=== PATIENT | female | born 1965 | race Caucasian/White ===

== ENCOUNTER 2024-07-01 20:38 | Emergency (ER) | payer OTHER ==
--- NOTE | 2024-07-01 21:12 | RAD REPORT ---
EXAM DESCRIPTION: RAD - Foot Left 3 View - 07/01/2024 9:06 pm CLINICAL HISTORY: left second toe injury COMPARISON: <Comparisons> FINDINGS: No fracture or dislocation seen. Small plantar calcaneal spur.
[2024-07-01] MEDS ORDERED: LIDOCAINE 1% 20 ML MDV ONE (21:16)
[2024-07-01] MEDS ORDERED: methocarbamoL 750 MG TAB ONE (21:17)
[2024-07-01] MEDS ORDERED: KETOROLAC 30 MG/ML INJ ONE (21:17)
--- NOTE | 2024-07-01 22:21 | ER ---
Nurse's Notes [facility] Name: Carlee Campuzano Age: 58 yrs Sex: Female : 1965 Arrival Date: 07/01/2024 Time: 20:38 Bed 14 Private MD: Diagnosis: Contusion of left foot;Acute left fourth toe contusion and pain Presentation: 07/01 21:12 Chief complaint: Patient states: hit toe on corner of kitchen cabinet, is bent and tm6 causing significant pain. Coronavirus screen: Vaccine status: Patient reports being unvaccinated. Ebola Screen: Patient negative for fever greater than or equal to 101.5 degrees Fahrenheit, and additional compatible Ebola Virus Disease symptoms Patient denies exposure to infectious person. Patient denies travel to an Ebola-affected area in the 21 days before illness onset. No symptoms or risks identified at this time. Initial Sepsis Screen: Does the patient meet any 2 criteria? No. Patient's initial sepsis screen is negative. Does the patient have a suspected source of infection? No. Patient's initial sepsis screen is negative. Risk Assessment: Do you want to hurt yourself or someone else? Patient reports no desire to harm self or others. Onset of symptoms was July 01, 2024. 21:12 Method Of Arrival: Ambulatory tm6 21:12 Acuity: JO ANN 4 tm6 Triage Assessment: 21:14 General: Appears uncomfortable, Behavior is cooperative. Pain: Complains of pain in tm6 left fourth toe Pain currently is 10 out of 10 on a pain scale. EENT: No signs and/or symptoms were reported regarding the EENT system. Neuro: Level of Consciousness is awake, alert, obeys commands, Oriented to person, place, time, situation. Cardiovascular: Patient's skin is warm and dry. Respiratory: Airway is patent Respiratory effort is even, unlabored, Respiratory pattern is regular, symmetrical. GI: No signs and/or symptoms were reported involving the gastrointestinal system. Abdomen is flat, non-distended. : No signs and/or symptoms were reported regarding the genitourinary system. Derm: No signs and/or symptoms reported regarding the dermatologic system. Musculoskeletal: Reports pain in left fourth toe. Historical: - Allergies: 21:14 Demerol; tm6 21:14 Morphine; tm6 - PMHx: 21:14 chronic back pain; Asthma; insomnia; tm6 - PSHx: 21:14 Cholecystectomy; gastric sleeve; left shoulder; Ligation of fallopian tube; right tm6 shoulder; Total abdominal hysterectomy; - Immunization history:: Client reports having NOT received the Covid vaccine. - Infectious Disease History:: Denies. - Social history:: Smoking status: Patient denies any tobacco usage or history of. Patient/guardian denies using alcohol. Screenin:05 [facility] ED Fall Risk Assessment (Adult) History of falling in the last 3 months, 12 including since admission. [facility] ED Fall Risk Assessment (Adult) History of falling in the last 3 months, including since admission No falls in past 3 months (0 pts) Confusion or Disorientation No (0 pts) Intoxicated or Sedated No (0 pts) Impaired Gait No (0 pts) Mobility Assist Device Used No (0 pt) Altered Elimination No (0 pt) Score/Fall Risk Level 0 - 2 = Low Risk Oriented to surroundings, Maintained a safe environment. Abuse screen: Denies threats or abuse. Denies injuries from another. Nutritional screening: No deficits noted. Tuberculosis screening: No symptoms or risk factors identified. Assessment: 22:04 General: Appears in no apparent distress. Behavior is calm, cooperative. Pain: 12 Complains of pain in left foot. Neuro: No deficits noted. Cardiovascular: No deficits noted. Respiratory: No deficits noted. GI: No deficits noted. No signs and/or symptoms were reported involving the gastrointestinal system. : No deficits noted. No signs and/or symptoms were reported regarding the genitourinary system. EENT: No deficits noted. No signs and/or symptoms were reported regarding the EENT system. Derm: No deficits noted. No signs and/or symptoms reported regarding the dermatologic system. Musculoskeletal: Reports pain in left foot. Vital Signs: 21:12 BP 124 / 83; Pulse 69; Resp 19; Temp 97.3(TE); Pulse Ox 96% on R/A; Weight 61.23 kg; tm6 Height 5 ft. 4 in. ; Pain 10/10; 22:04 BP 147 / 100; Pulse 62; Resp 14; Temp 98.2; Pulse Ox 100% ; Pain 4/10; jm12 23:01 Pulse 69; Resp 16; Pulse Ox 100% ; Pain 0/10; jm12 21:12 Body Mass Index 23.17 (61.23 kg, 162.56 cm) tm6 21:12 Pain Scale: Adult tm6 22:04 Pain Scale: Adult jm12 23:01 Pain Scale: Adult jm12 ED Course: 20:44 Patient arrived in ED. jj6 20:44 Benjamin Biswas MD is Attending Physician. sp4 21:08 Foot Left 3 View XRAY In Process Unspecified. EDMS 21:14 Triage completed. tm6 21:14 Arm band placed on right wrist. tm6 22:19 Sathish Benson MD is Referral Physician. sp4 Administered Medications: 21:33 Drug: Ketorolac IM 60 mg IM once Route: IM; Site: left vastus lateralis; jm12 22:58 Follow up: Response: Marked relief of symptoms; Pain is decreased jm12 21:33 Drug: Methocarbamol PO 1500 mg PO once Route: PO; jm12 22:58 Follow up: Response: Marked relief of symptoms; Pain is decreased jm12 22:06 Drug: Lidocaine Infiltration (1 %) 20 ml 20 ml Infiltration once; to bedside {Note: jm12 GIVEN BY DR Dunbar} Volume: 20 ml; Route: Infiltration; Outcome: 22:20 Discharge ordered by . sp4 23:02 Discharged to home jm12 23:02 Condition: stable 23:02 Discharge instructions given to patient, Instructed on discharge instructions, follow up and referral plans. medication usage, crutch walking, Demonstrated understanding of instructions, follow-up care, crutch walking, 23:04 Patient left the ED. jm12 Signatures: Dispatcher [employer] EDMS Kamilah Sally j6 Benjamin Biswas MD MD sp4 Du Holloway RN RN 6 Julianna Tam RN RN jm12
--- NOTE | 2024-07-01 22:21 | EDPHYS ---
Physician Documentation [facility] Name: Carlee Campuzano Age: 58 yrs Sex: Female : 1965 Arrival Date: 07/01/2024 Time: 20:38 Bed 14 Private MD: NURA Physician Benjamin Biswsa HPI: 07/01 20:44 This 58 yrs old Female presents to ER via Unassigned with complaints of Toe sp4 Injury. Historical: - Allergies: 21:14 Demerol; tm6 21:14 Morphine; tm6 - PMHx: 21:14 chronic back pain; Asthma; insomnia; tm6 - PSHx: 21:14 Cholecystectomy; gastric sleeve; left shoulder; Ligation of fallopian tube; right tm6 shoulder; Total abdominal hysterectomy; - Immunization history:: Client reports having NOT received the Covid vaccine. - Infectious Disease History:: Denies. - Social history:: Smoking status: Patient denies any tobacco usage or history of. Patient/guardian denies using alcohol. Vital Signs: 21:12 BP 124 / 83; Pulse 69; Resp 19; Temp 97.3(TE); Pulse Ox 96% on R/A; Weight 61.23 kg; tm6 Height 5 ft. 4 in. ; Pain 10/10; 22:04 BP 147 / 100; Pulse 62; Resp 14; Temp 98.2; Pulse Ox 100% ; Pain 4/10; jm12 23:01 Pulse 69; Resp 16; Pulse Ox 100% ; Pain 0/10; jm12 21:12 Body Mass Index 23.17 (61.23 kg, 162.56 cm) 6 21:12 Pain Scale: Adult tm6 22:04 Pain Scale: Adult jm12 23:01 Pain Scale: Adult 12 MDM: 20:56 Patient medically screened. sp4 07/01 20:56 Order name: Foot Left 3 View XRAY; Complete Time: 22:28 sp4 07/01 22:15 Order name: Crutches sp4 07/01 22:15 Order name: Orthopedic shoe: Left foot ortho boot - applied by MD pool4 Administered Medications: 21:33 Drug: Ketorolac IM 60 mg IM once Route: IM; Site: left vastus lateralis; [facility] 22:58 Follow up: Response: Marked relief of symptoms; Pain is decreased [facility] 21:33 Drug: Methocarbamol PO 1500 mg PO once Route: PO; 12 22:58 Follow up: Response: Marked relief of symptoms; Pain is decreased [facility] 22:06 Drug: Lidocaine Infiltration (1 %) 20 ml 20 ml Infiltration once; to bedside {Note: jm12 GIVEN BY DR Dunbar} Volume: 20 ml; Route: Infiltration; Disposition Summary: 07/01/24 22:20 Discharge Ordered Problem: new sp4 Symptoms: have improved sp4 Condition: Stable sp4 Diagnosis - Contusion of left foot sp4 - Acute left fourth toe contusion and pain sp4 Followup: sp4 - With: Sathish Benson MD - When: 7 - 10 days - Reason: Recheck today's complaints Discharge Instructions: - Discharge Summary Sheet sp4 - Toe Fracture sp4 Forms: - Patient Portal Instructions sp4 Prescriptions: - Ibuprofen 800 mg Oral Tablet - take 1 tablet ORAL route every 8 hours As needed take with food; 30 tablet; sp4 Refills: 0, Product Selection Permitted - methocarbamol 750 mg Oral tablet - take 2 tablets ORAL route every 8 hours for 3 days PRN pain; 60 tablet; sp4 Refills: 0, Product Selection Permitted Signatures: Dispatcher [employer] Benjamin Henry MD MD sp4 Du Holloway RN RN tm6 Julianna Tam RN RN jm12
[2024-07-01 23:10] VITALS: BP 147/100; TEMP 98.2; O2SAT 100
== END 2024-07-01 23:04 | disposition home or self-care (01) ==
LOC: ER 20:38
DX: S90.32XA Contusion of left foot, initial encounter (principal); S90.122A Contusion of left lesser toe(s) without damage to nail, initial encounter
CPT/HCPCS: 73630; 96372; 99284; J2001

== ENCOUNTER 2024-08-13 10:35 | Emergency (ER) | payer OTHER ==
[2024-08-13] MEDS ORDERED: IPRATROPIUM BROM 0.5MG/2.5ML ONE (10:57)
[2024-08-13] MEDS ORDERED: ALBUTEROL 2.5 MG/3 ML NEB SOL ONE (10:57)
[2024-08-13] MEDS ORDERED: dexAMETHasone 10 MG/ML VIAL ONE (10:57)
--- NOTE | 2024-08-13 11:23 | RAD REPORT ---
EXAM: Chest Pa And Lat (2 Views) HISTORY: COUGH COMPARISON: 06/10/24 FINDINGS: LUNGS/PLEURA: The lungs are clear. No pleural effusions or pneumothorax. No pulmonary edema. MEDIASTINUM: The mediastinal silhouette is within normal limits. CARDIAC: The cardiac silhouette is within normal limits. UPPER ABDOMEN: No significant abnormality. BONES: No acute fracture. LINES/TUBES/OTHER: N/A IMPRESSION: No evidence of acute cardiopulmonary disease
[2024-08-13 11:28] LABS: SARS-CoV-2 Antigen CONTROL BLUE LINE VIS/BG OK; SARS-CoV-2 Antigen Rapid Res Negative (Negative)
--- NOTE | 2024-08-13 11:58 | ER ---
Nurse's Notes [facility] Name: Carlee Campuzano Age: 58 yrs Sex: Female : 1965 Arrival Date: 08/13/2024 Time: 10:35 Bed 17 Private MD: Diagnosis: Acute upper respiratory infection, unspecified;Unspecified asthma, uncomplicated Presentation: 08/13 10:45 Chief complaint: Patient states: COUGH, FLU SYMPTOMS X 6 WEEKS. WENT TO [facility] 4 WEEKS db AGO. SYMPTOMS WORSE X 3 DAYS WITH INCREASED COUGH AND FEVER TODAY 101. TOOK TYLENOL TODAY FOR FEVER. TOOK ALL OF PRESCRIBED ANTIBIOTICS FROM [facility] AND ALBUTEROL TREATMENT. Coronavirus screen: Client denies travel out of the [place] in the last 14 days. At this time, the client does not indicate any symptoms associated with coronavirus-19. Ebola Screen: Patient negative for fever greater than or equal to 101.5 degrees Fahrenheit, and additional compatible Ebola Virus Disease symptoms Patient denies exposure to infectious person. Patient denies travel to an Ebola-affected area in the 21 days before illness onset. No symptoms or risks identified at this time. Initial Sepsis Screen: Does the patient meet any 2 criteria? No. Patient's initial sepsis screen is negative. Does the patient have a suspected source of infection? No. Patient's initial sepsis screen is negative. Risk Assessment: Do you want to hurt yourself or someone else? Patient reports no desire to harm self or others. Onset of symptoms was August 13, 2024. 10:45 Method Of Arrival: Ambulatory db 10:45 Acuity: JO ANN 4 db Triage Assessment: 11:29 General: Appears in no apparent distress. comfortable, Behavior is calm, cooperative, db appropriate for age. Pain: Denies pain. Neuro: Level of Consciousness is awake, alert, obeys commands, Oriented to person, place, time, situation. Respiratory: Reports cough that is persistent Airway is patent Respiratory effort is even, unlabored, Respiratory pattern is regular, symmetrical. Historical: - Allergies: 11:29 Demerol; db 11:29 Morphine; db - PMHx: 11:29 Asthma; chronic back pain; insomnia; db - PSHx: 11:29 Cholecystectomy; gastric sleeve; left shoulder; Ligation of fallopian tube; right db shoulder; Total abdominal hysterectomy; - Immunization history:: Adult Immunizations unknown. - Infectious Disease History:: Denies. - Social history:: Smoking status: Patient/guardian denies using tobacco. Screenin:10 [facility] ED Fall Risk Assessment (Adult) History of falling in the last 3 months, db including since admission No falls in past 3 months (0 pts) Confusion or Disorientation No (0 pts) Intoxicated or Sedated No (0 pts) Impaired Gait No (0 pts) Mobility Assist Device Used No (0 pt) Altered Elimination No (0 pt) Score/Fall Risk Level 0 - 2 = Low Risk Oriented to surroundings, Maintained a safe environment. Abuse screen: Denies threats or abuse. Denies injuries from another. Nutritional screening: No deficits noted. Tuberculosis screening: No symptoms or risk factors identified. Assessment: 12:00 Reassessment: Patient appears in no apparent distress at this time. Patient and/or db family updated on plan of care and expected duration. Pain level reassessed. Patient is alert, oriented x 3, equal unlabored respirations, skin warm/dry/pink. Patient states feeling better. Patient states symptoms have improved. General: Appears in no apparent distress. comfortable, Behavior is calm, cooperative. Neuro: Level of Consciousness is awake, alert, obeys commands, Oriented to person, place, time, situation. Vital Signs: 10:45 BP 136 / 77; Pulse 85; Resp 18; Temp 98.2; Pulse Ox 99% ; Weight 61.23 kg; Height 5 ft. db 4 in. ; 11:30 BP 127 / 83; Pulse 67; Resp 18; Pulse Ox 99% on R/A; db 12:10 BP 120 / 78; Pulse 68; Resp 18; Pulse Ox 96% on R/A; db 10:45 Body Mass Index 23.17 (61.23 kg, 162.56 cm) db ED Course: 10:38 Patient arrived in ED. im 10:39 Jaycob Hughes FNP-C is PHCP. dr5 10:39 Justin Spaulding MD is Attending Physician. dr5 10:53 Kaitlyn Pham, ALEXSANDER is Primary Nurse. db 11:18 Chest Pa And Lat (2 Views) XRAY In Process Unspecified. EDMS 11:29 Triage completed. db 11:29 Arm band placed on Patient placed in an exam room. db 12:10 Patient has correct armband on for positive identification. Bed in low position. Call db light in reach. Side rails up X 1. Provided Education on: DISCHARGE, MEDICATIONS AND FOLLOWUP. Pulse ox on. NIBP on. 12:10 No provider procedures requiring assistance completed. Patient did not have IV access db during this emergency room visit. Administered Medications: 11:10 Drug: Dexamethasone IM 10 mg IM once Route: IM; Site: right ventrogluteal; db 12:11 Follow up: Response: No adverse reaction db 11:11 Drug: DuoNeb Nebulize (3:1) (2.5 mg - 0.5 mg) 3 ml Nebulizer once Route: Nebulizer; db 12:11 Follow up: Response: No adverse reaction db Medication: 12:10 VIS not applicable for this client. db Outcome: 11:58 Discharge ordered by . dr5 12:10 Discharged to home ambulatory, with family, db 12:10 Condition: stable 12:10 Discharge instructions given to patient, family, Instructed on discharge instructions, follow up and referral plans. Prescriptions given X 4, 12:12 Patient left the ED. db Signatures: Dispatcher [employer] Kaitlyn Cochran, RN RN db Teresa Roger Dustin, [employer] CONTRACTOR-C P[employer]OD CONTRACTOR-Cdr5
--- NOTE | 2024-08-13 11:58 | EDPHYS ---
Physician Documentation [facility] Name: Carlee Campuzano Age: 58 yrs Sex: Female : 1965 Arrival Date: 08/13/2024 Time: 10:35 Bed 17 Private MD: ED Physician Justin Spaulding HPI: 08/13 10:57 This 58 yrs old Female presents to ER via Ambulatory with complaints of Flu dr5 Symptoms. 10:57 Pt presents to ER with 3 days of cough, congestion, wheezing, and subjective fevers at dr5 home. Pt hasn't tried any at home remedies.. Historical: - Allergies: 11:29 Demerol; db 11:29 Morphine; db - PMHx: 11:29 Asthma; chronic back pain; insomnia; db - PSHx: 11:29 Cholecystectomy; gastric sleeve; left shoulder; Ligation of fallopian tube; right db shoulder; Total abdominal hysterectomy; - Immunization history:: Adult Immunizations unknown. - Infectious Disease History:: Denies. - Social history:: Smoking status: Patient/guardian denies using tobacco. ROS: 10:57 Constitutional: as per hpi dr5 Exam: 10:57 Constitutional: This is a well developed, well nourished patient who is awake, alert, dr5 and in no acute distress. Head/Face: Normocephalic, atraumatic. Eyes: Pupils equal round and reactive to light, extra-ocular motions intact. Lids and lashes normal. Conjunctiva and sclera are non-icteric and not injected. Cornea within normal limits. Periorbital areas with no swelling, redness, or edema. ENT: Nares patent. No nasal discharge, no septal abnormalities noted. Tympanic membranes are normal and external auditory canals are clear. Oropharynx with no redness, swelling, or masses, exudates, or evidence of obstruction, uvula midline. Mucous membranes moist. Neck: Trachea midline, no thyromegaly or masses palpated, and no cervical lymphadenopathy. Supple, full range of motion without nuchal rigidity, or vertebral point tenderness. No Meningismus. Respiratory: Lungs have equal breath sounds bilaterally, clear to auscultation. No rales, rhonchinoted. Mild expiratory wheezing noted in bilateral lower lobes. No increased work of breathing, no retractions or nasal flaring. Abdomen/GI: Soft, non-tender, non-distended Vital Signs: 10:45 BP 136 / 77; Pulse 85; Resp 18; Temp 98.2; Pulse Ox 99% ; Weight 61.23 kg; Height 5 ft. db 4 in. ; 11:30 BP 127 / 83; Pulse 67; Resp 18; Pulse Ox 99% on R/A; db 12:10 BP 120 / 78; Pulse 68; Resp 18; Pulse Ox 96% on R/A; db 10:45 Body Mass Index 23.17 (61.23 kg, 162.56 cm) db MDM: 10:40 Patient medically screened. dr5 12:00 Differential diagnosis: viral Infection, bacterial infection, URI, bronchitis, dr5 pneumonia Asthma. Data reviewed: vital signs, nurses notes. Consideration of Admission/Observation Escalation of care including admission/observation considered. If hypoxic in setting of PNA and / or COVID-19. I considered the following discharge prescriptions or medication management in the emergency department Antibiotics: At this time antibiotics are not recommended, Antivirals: At this time, antivirals are not recommended, Medications were administered in the Emergency Department. See MAR. Care significantly affected by the following chronic conditions: Asthma. Care significantly affected by the following Social Determinants of Health: Poor access to healthcare and/or lack of insurance, Poor access to transportation, Misuse of alcohol and/or drugs. Counseling: I had a detailed discussion with the patient and/or guardian regarding the historical points, exam findings, and any diagnostic results supporting the discharge/admit diagnosis, the presence of at least one elevated blood pressure reading (>120/80) during this emergency department visit, lab results, radiology results, the need for outpatient follow up, for definitive care, a family practitioner, to return to the emergency department if symptoms worsen or persist or if there are any questions or concerns that arise at home. Medication response: albuterol nebulizer treatment(s) relieved the patient's symptoms. The patient is no longer wheezing. ED course: CXR was normal. COVID/Flu/Strep negative. Will treat symptomatically with PCP follow up as needed.. 08/13 10:52 Order name: Strep dr5 08/13 10:52 Order name: SARS RAPID; Complete Time: 11:28 dr5 08/13 10:52 Order name: Flu; Complete Time: 11:43 dr5 08/13 11:23 Order name: Throat Culture EDRI 08/13 10:52 Order name: Chest Pa And Lat (2 Views) XRAY; Complete Time: 11:28 dr5 Administered Medications: 11:10 Drug: Dexamethasone IM 10 mg IM once Route: IM; Site: right ventrogluteal; db 12:11 Follow up: Response: No adverse reaction db 11:11 Drug: DuoNeb Nebulize (3:1) (2.5 mg - 0.5 mg) 3 ml Nebulizer once Route: Nebulizer; db 12:11 Follow up: Response: No adverse reaction db Disposition: 14:05 Co-signature as Attending Physician, Justin Spaulding MD I reviewed the patient's care rt provided by the Advanced Practice Provider and agree with the diagnosis and treatment plan. Disposition Summary: 08/13/24 11:58 Discharge Ordered Notes: Location: Home dr5 Condition: Stable dr5 Diagnosis - Acute upper respiratory infection, unspecified dr5 - Unspecified asthma, uncomplicated dr5 Followup: dr5 - With: Emergency Department - When: As needed - Reason: Worsening of condition Followup: dr5 - With: Private Physician - When: 2 - 3 days - Reason: Recheck today's complaints, Continuance of care, Re-evaluation by your physician Discharge Instructions: - Discharge Summary Sheet dr5 - Asthma, Adult dr5 - Viral Respiratory Infection, [id number] dr5 Forms: - Work release form dr5 - Medication Reconciliation Form dr5 - Patient Portal Instructions dr5 - Leadership Thank You Letter dr5 Prescriptions: - Advair Diskus 500-50 mcg/Dose Inhalation Disk with Device - inhale 1 puff INHALATION route every 12 hours; 1 packet; Refills: 0, Product dr5 Selection Permitted - Prednisone 20 mg Oral Tablet - take 2 tablets ORAL route once daily for 5 days; 10 tablet; Refills: 0, Product dr5 Selection Permitted - benzonatate 100 mg Oral capsule - take 1 capsule ORAL route 3 times per day for 7 days; 30 capsule; Refills: 0, dr5 Product Selection Permitted - Guaifenesin AC 10-100 mg/5 mL Oral Liquid - take 10 milliliters ORAL route every 4 hours As needed; 240 milliliter; dr5 Refills: 0, Product Selection Permitted Signatures: Dispatcher [employer] Kaitlyn Miller RN RN Justin Hendricks MD MD rt Jaycob Hughes, BENCH SCIENTIST-C BENCH SCIENTIST-Cdr5 Corrections: (The following items were deleted from the chart) 10:52 10:52 Chest Pa And Lat (2 Views)+[email or web address] ordered. EDMS EDMS
[2024-08-13 12:17] VITALS: TEMP 98.2
[2024-08-13 12:20] VITALS: BP 120/78; O2SAT 96
== END 2024-08-13 12:12 | disposition home or self-care (01) ==
LOC: ER 10:35
DX: J06.9 Acute upper respiratory infection, unspecified (principal); J45.909 Unspecified asthma, uncomplicated; Z11.52 Encounter for screening for COVID-19
CPT/HCPCS: 87070; 36415; 87081; 87804 ×2; 71046; 96372; 99284; 87811; J7613; J7644; J1100

== ENCOUNTER 2024-08-20 17:23 | Emergency (ER) | payer OTHER ==
--- NOTE | 2024-08-20 17:54 | EDPHYS ---
Physician Documentation [facility] Name: Carlee Campuzano Age: 58 yrs Sex: Female : 1965 Arrival Date: 08/20/2024 Time: 17:23 Bed 14 Private MD: ED Physician Luke Moon HPI: 08/20 17:55 This 58 yrs old Female presents to ER via Ambulatory with complaints of Sore Throat. sb4 17:55 patient reports feeling sick for about 6 weeks now with varying symptoms- cough, sore sb4 throat, wheezing, ear pain, sinus congestion. was seen here about 1 week ago, diagnosed with URI and given prescriptions for steroids, antitussives, inhaler, and expectorants. states her symptoms have not gotten better and now her throat is causing her more pain. states she had a fever this morning and saw pus pockets on her tonsils. Historical: - Allergies: 17:50 Demerol; aa5 17:50 Morphine; aa5 - PMHx: 17:50 Asthma; chronic back pain; insomnia; aa5 - PSHx: 17:50 Cholecystectomy; gastric sleeve; left shoulder; Ligation of fallopian tube; right aa5 shoulder; Total abdominal hysterectomy; - Immunization history:: Adult Immunizations unknown. - Infectious Disease History:: Denies. - Social history:: Smoking status: Patient denies any tobacco usage or history of. ROS: 17:55 Cardiovascular: Negative for chest pain, palpitations, and edema, sb4 17:55 Constitutional: Positive for fatigue, fever, malaise, 17:55 ENT: Positive for ear pain, sore throat, 17:55 Respiratory: Positive for cough, 17:55 All other systems are negative, Exam: 17:55 Head/Face: Normocephalic, atraumatic. Eyes: Extra-ocular motions intact. Periorbital sb4 areas with no swelling, redness, or edema. Cardiovascular: Regular rate and rhythm with a normal S1 and S2. Respiratory: Lungs have equal breath sounds bilaterally, clear to auscultation and percussion. No rales, rhonchi or wheezes noted. No increased work of breathing, no retractions or nasal flaring. Skin: Warm, dry with normal turgor. Normal color with no rashes, no lesions, and no evidence of cellulitis. 17:55 Constitutional: The patient appears alert, awake, obviously ill, 17:55 ENT: Posterior pharynx: Tonsils: are normal in appearance, swelling, that is mild, erythema, that is moderate, Vital Signs: 17:50 BP 146 / 88; Pulse 66; Resp 18 S; Temp 98.2(TE); Pulse Ox 97% on R/A; Weight 61.23 kg aa5 (R); Height 5 ft. 4 in. (R); 17:50 Body Mass Index 23.17 (61.23 kg, 162.56 cm) aa5 MDM: 17:45 Patient medically screened. sb4 17:57 Data reviewed: vital signs, nurses notes, and as a result, I will discharge patient. sb4 Counseling: I had a detailed discussion with the patient and/or guardian regarding the historical points, exam findings, and any diagnostic results supporting the discharge/admit diagnosis, to return to the emergency department if symptoms worsen or persist or if there are any questions or concerns that arise at home. Administered Medications: No medications were administered Disposition Summary: 08/20/24 17:53 Discharge Ordered Notes: Location: Home sb4 Problem: an ongoing problem sb4 Symptoms: are unchanged sb4 Condition: Stable sb4 Diagnosis - Acute pharyngitis, unspecified sb4 Followup: sb4 - With: Emergency Department - When: As needed - Reason: Trouble breathing, Worsening of condition Discharge Instructions: - Discharge Summary Sheet sb4 - Pharyngitis, [id number] sb4 Forms: - Antibiotic Education sb4 - Patient Portal Instructions sb4 - Leadership Thank You Letter sb4 Prescriptions: - Amoxicillin 875 mg Oral Tablet - take 1 tablet ORAL route every 12 hours for 10 days; 20 tablet; Refills: 0, sb4 Product Selection Permitted Addendum: 08/22/2024 09:22 I was immediately available for consultation during this patient's visit. I did not e c2 personally see the patient or discuss the patient with the TED. . Signatures: Kylie Valentin, RN RN aa5 Leny Tian PA-C PAJeanine sb4 Luke Moon MD MD ec2
--- NOTE | 2024-08-20 17:54 | ER ---
Nurse's Notes [facility] Name: Carlee Campuzano Age: 58 yrs Sex: Female : 1965 Arrival Date: 08/20/2024 Time: 17:23 Bed 14 Private MD: Diagnosis: Acute pharyngitis, unspecified Presentation: 08/20 17:50 Chief complaint: Patient states: "I was here recently but I am still sick". pt c/o aa5 cough, sore throat and concetta ear pain. Coronavirus screen: sore throat. Ebola Screen: Patient denies travel to an Ebola-affected area in the 21 days before illness onset. Initial Sepsis Screen: Does the patient meet any 2 criteria? No. Patient's initial sepsis screen is negative. Does the patient have a suspected source of infection? No. Patient's initial sepsis screen is negative. Risk Assessment: Do you want to hurt yourself or someone else? Patient reports no desire to harm self or others. Onset of symptoms was 2023. 17:50 Acuity: JO ANN 4 aa5 17:50 Method Of Arrival: Ambulatory aa5 Historical: - Allergies: 17:50 Demerol; aa5 17:50 Morphine; aa5 - PMHx: 17:50 Asthma; chronic back pain; insomnia; aa5 - PSHx: 17:50 Cholecystectomy; gastric sleeve; left shoulder; Ligation of fallopian tube; right aa5 shoulder; Total abdominal hysterectomy; - Immunization history:: Adult Immunizations unknown. - Infectious Disease History:: Denies. - Social history:: Smoking status: Patient denies any tobacco usage or history of. Screenin:02 [facility] ED Fall Risk Assessment (Adult) History of falling in the last 3 months, kc6 including since admission No falls in past 3 months (0 pts) Confusion or Disorientation No (0 pts) Intoxicated or Sedated No (0 pts) Impaired Gait No (0 pts) Mobility Assist Device Used No (0 pt) Altered Elimination No (0 pt) Score/Fall Risk Level 0 - 2 = Low Risk Oriented to surroundings. Abuse screen: Denies threats or abuse. Denies injuries from another. Nutritional screening: No deficits noted. Tuberculosis screening: No symptoms or risk factors identified. Assessment: 18:01 General: Appears in no apparent distress. comfortable, well groomed, well developed, kc6 Behavior is calm, cooperative, appropriate for age. Neuro: Level of Consciousness is awake, alert, obeys commands, Oriented to person, place, time, situation, Appropriate for age. Cardiovascular: Capillary refill < 3 seconds. Respiratory: Airway is patent Trachea midline Respiratory effort is even, unlabored, Respiratory pattern is regular, symmetrical, Breath sounds are clear bilaterally. GI: No signs and/or symptoms were reported involving the gastrointestinal system. : No signs and/or symptoms were reported regarding the genitourinary system. EENT: Throat is reddened bilaterally with gag reflex present, Reports pain when swallowing. Derm: No signs and/or symptoms reported regarding the dermatologic system. Skin is intact, is healthy with good turgor, Skin is pink, warm \\T\\ dry. Musculoskeletal: No signs and/or symptoms reported regarding the musculoskeletal system. Circulation, motion, and sensation intact. Capillary refill < 3 seconds, Range of motion: intact in all extremities. Vital Signs: 17:50 BP 146 / 88; Pulse 66; Resp 18 S; Temp 98.2(TE); Pulse Ox 97% on R/A; Weight 61.23 kg aa5 (R); Height 5 ft. 4 in. (R); 17:50 Body Mass Index 23.17 (61.23 kg, 162.56 cm) aa5 ED Course: 17:37 Patient arrived in ED. ra3 17:38 Len[facility] Tian [facility] sb4 17:38 Luke Moon MD is Attending Physician. sb4 17:50 Arm band placed on. aa5 17:51 Triage completed. aa5 18:01 Jaci Toscano, ALEXSANDER is Primary Nurse. kc6 18:02 Patient has correct armband on for positive identification. Bed in low position. Call kc6 light in reach. Side rails up X 1. Pulse ox on. NIBP on. Door closed. Noise minimized. Lights dimmed. Pillow given. 18:02 Patient maintains SpO2 saturation greater than 95% on room air. kc6 18:02 No provider procedures requiring assistance completed. Patient did not have IV access kc6 during this emergency room visit. Administered Medications: No medications were administered Medication: 18:02 VIS not applicable for this client. kc6 Outcome: 17:53 Discharge ordered by . sb4 18:02 Discharged to home ambulatory, kc6 18:02 Condition: good 18:02 Discharge instructions given to patient, Instructed on discharge instructions, follow up and referral plans. medication usage, Demonstrated understanding of instructions, follow-up care, medications, Prescriptions given X 1, 18:02 Patient left the ED. kc6 Signatures: Kylie Valentin, RN RN aa5 Jaci Toscano RN RN kc6 Leny Tian PAMoeC PA-Lora sb4 Alisha Haq ra3 Corrections: (The following items were deleted from the chart) 17:53 17:50 BP 146 / 88; Pulse 66bpm; Resp 18bpm; Spontaneous; Pulse Ox 97% RA; Temp 98.2F aa5 Temporal; aa5
[2024-08-20 21:49] VITALS: BP 146/88; TEMP 98.2; O2SAT 97
== END 2024-08-20 18:02 | disposition home or self-care (01) ==
LOC: ER 17:23
DX: J02.9 Acute pharyngitis, unspecified (principal)

== ENCOUNTER 2024-09-03 13:35 | Emergency (ER) | payer OTHER ==
[2024-09-03] MEDS ORDERED: AZITHROMYCIN 250 MG TAB ONE (14:03)
[2024-09-03] MEDS ORDERED: BENZONATATE 100 MG CAP PO ONE (14:21)
[2024-09-03] MEDS ORDERED: dexAMETHasone 10 MG/ML VIAL ONE (15:04)
[2024-09-03] MEDS ORDERED: NA CHLORIDE 0.9% 1,000 ML ONE (15:04)
[2024-09-03] MEDS ORDERED: FAMOTIDINE 20 MG/2 ML VIAL IV ONE (15:04)
[2024-09-03 15:36] LABS: SARS-CoV-2 Antigen CONTROL BLUE LINE VIS/BG OK; SARS-CoV-2 Antigen Rapid Res Negative (Negative)
[2024-09-03 15:40] LABS: Albumin 3.7 g/dL (3.4-5.0); Albumin/Globulin Ratio 1.2 (1.1-1.8); Anion Gap 7.7 mEq/L (5.0-15.0); Bilirubin Total 0.4 mg/dL (0.2-1.0); Potassium 3.7 mEq/L (3.5-5.1); Protein, Total 6.7 g/dL (6.4-8.2)
[2024-09-03 15:42] LABS: Absolute Lymphocytes (CBC) 1.4 K/uL (0.7-4.9); Absolute Monocytes 0.4 K/uL (0.1-1.3); Absolute Neutrophil 2.2 K/uL (1.8-8.0); Basophils % 1.1 % (0-1.3); Hemoglobin 14.1 g/dL (12.0-15.0); Lymphocytes % 35.2 % (15.3-44.8); MCH 30.1 pg (27.0-35.0); MCHC 33.6 g/dL (32.0-36.0); MCV 89.7 fL (80-100); MPV 8.8 fL (7.6-11.3); Monocytes % 9.5 % (3.3-12.3); Neutrophils % 54.2 % (41.7-73.7); Nucleated Red Blood Cells % 0.1 % (0-0); Platelets 177 thou/uL (152-406); RBC Red Blood Cell Count 4.68 M/uL (3.86-4.86); Red Cell Distribution Width 14.2 % (12.1-15.2)
--- NOTE | 2024-09-03 16:28 | RAD REPORT ---
EXAM: CT Soft Tissue Neck W/Contr INDICATION: [facility] MAIN NA SORE THROAT Bed Name: 9 TECHNIQUE: Helical CT examination of the neck with IV contrast. Sagittal and coronal reformations wer e generated. This exam was performed according to our departmental dose-optimization program, which includes automated exposure control, adjustment of the mA and/or kV according to patient size and/or use of iterative reconstruction technique. COMPARISON: None. FINDINGS: Mucosal spaces: Nasopharynx, oropharynx, oral cavity, larynx and hypopharynx are normal. No suspiciou s masses. Epiglottis is normal in configuration. True vocal cords cords are normally situated. Piriform sinuses are well-aerated. Lymph Nodes: No pathologic appearing cervical lymph nodes. Salivary Glands: Unremarkable. Thyroid Gland: Normal Included Intracranial Structures: Normal Included Orbits: Normal Paranasal Sinuses: Predominantly clear Tympanomastoid Cavities: Normal Vascular Structures: Normal Osseous Structures: No acute osseous abnormality. Included Lung Apices: Normal IMPRESSION: Normal contrast-enhanced CT of the neck.
--- NOTE | 2024-09-03 16:30 | EDPHYS ---
Physician Documentation [facility] Name: Carlee Campuzano Age: 58 yrs Sex: Female : 1965 Arrival Date: 09/03/2024 Time: 13:35 Bed 9 Private MD: ED Physician Kang Oglesby HPI: 09/03 14:48 This 58 yrs old Female presents to ER via Ambulatory with complaints of Sore kerrie Throat. 14:48 The patient presents with sore throat. The patient describes throat pain as constant, kerrie raw, scratchy. Onset: The symptoms/episode began/occurred 14 day(s) ago. Severity of symptoms: At their worst the symptoms were moderate, in the emergency department the symptoms are unchanged. Modifying factors: The symptoms are alleviated by nothing, the symptoms are aggravated by nothing. Associated signs and symptoms: Pertinent positives: Sore throat. The patient has experienced similar episodes in the past, multiple times. Historical: - Allergies: 13:54 Demerol; aa5 13:54 Morphine; aa5 - PMHx: 13:54 Asthma; chronic back pain; insomnia; aa5 - PSHx: 13:54 Cholecystectomy; gastric sleeve; left shoulder; Ligation of fallopian tube; right aa5 shoulder; Total abdominal hysterectomy; - Immunization history:: Adult Immunizations unknown. - Infectious Disease History:: Denies. - Social history:: Smoking status: Patient denies any tobacco usage or history of. ROS: 14:49 Constitutional: Negative for fever, chills, and weight loss, Eyes: Negative for injury, kerrie pain, redness, and discharge, Neck: Negative for injury, pain, and swelling, Cardiovascular: Negative for chest pain, palpitations, and edema, Respiratory: Negative for shortness of breath, cough, wheezing, and pleuritic chest pain, Abdomen/GI: Negative for abdominal pain, nausea, vomiting, diarrhea, and constipation, Back: Negative for injury and pain, : Negative for injury, bleeding, discharge, and swelling, MS/Extremity: Negative for injury and deformity, Skin: Negative for injury, rash, and discoloration, Neuro: Negative for headache, weakness, numbness, tingling, and seizure, Psych: Negative for depression, anxiety, suicide ideation, homicidal ideation, and hallucinations, Allergy/Immunology: Negative for hives, rash, and allergies, Endocrine: Negative for neck swelling, polydipsia, polyuria, polyphagia, and marked weight changes, Hematologic/Lymphatic: Negative for swollen nodes, abnormal bleeding, and unusual bruising, Exam: 14:49 Constitutional: This is a well developed, well nourished patient who is awake, alert, kerrie and in no acute distress. Head/Face: Normocephalic, atraumatic. Eyes: Pupils equal round and reactive to light, extra-ocular motions intact. Lids and lashes normal. Conjunctiva and sclera are non-icteric and not injected. Cornea within normal limits. Periorbital areas with no swelling, redness, or edema. ENT: Nares patent. No nasal discharge, no septal abnormalities noted. Tympanic membranes are normal and external auditory canals are clear. Oropharynx with no redness, swelling, or masses, exudates, or evidence of obstruction, uvula midline. Mucous membranes moist. Neck: Trachea midline, no thyromegaly or masses palpated, and no cervical lymphadenopathy. Supple, full range of motion without nuchal rigidity, or vertebral point tenderness. No Meningismus. Chest/axilla: Normal chest wall appearance and motion. Nontender with no deformity. No lesions are appreciated. Cardiovascular: Regular rate and rhythm with a normal S1 and S2. No gallops, murmurs, or rubs. Normal PMI, no JVD. No pulse deficits. Respiratory: Lungs have equal breath sounds bilaterally, clear to auscultation and percussion. No rales, rhonchi or wheezes noted. No increased work of breathing, no retractions or nasal flaring. Abdomen/GI: Soft, non-tender, with normal bowel sounds. No distension or tympany. No guarding or rebound. No evidence of tenderness throughout. Back: No spinal tenderness. No costovertebral tenderness. Full range of motion. Female : Normal external genitalia. Skin: Warm, dry with normal turgor. Normal color with no rashes, no lesions, and no evidence of cellulitis. MS/ Extremity: Pulses equal, no cyanosis. Neurovascular intact. Full, normal range of motion. Neuro: Awake and alert, GCS 15, oriented to person, place, time, and situation. Cranial nerves II-XII grossly intact. Motor strength 5/5 in all extremities. Sensory grossly intact. Cerebellar exam normal. Normal gait. Psych: Awake, alert, with orientation to person, place and time. Behavior, mood, and affect are within normal limits. 14:49 ENT: Posterior pharynx: no acute changes, Airway: normal, no evidence of obstruction, Tonsils: are normal in appearance, Uvula: normal, midline, non-edematous, no erythema, swelling, is not appreciated, that is mild, erythema, that is mild, exudate, is not appreciated, peritonsillar mass, is not appreciated, Voice: is hoarse, Vital Signs: 13:54 BP 131 / 99; Pulse 61; Resp 18 S; Temp 98.1(O); Pulse Ox 100% on R/A; Weight 61.23 kg aa5 (R); Height 5 ft. 4 in. (R); 13:54 Body Mass Index 23.17 (61.23 kg, 162.56 cm) aa5 MDM: 13:56 Medical Screening Exam initiated kerrie 14:52 Differential diagnosis: Allergic rhinitis, bronchitis, epiglottitis, gastroesophageal kerrie reflux disease, group A strep tonsillitis, influenza, laryngitis, mononucleosis, peritonsillar abscess pharyngitis, radiation retropharyngeal abcess tonsillitis, tracheobronchitis, upper respiratory infection, uvulitis, viral syndrome. Data reviewed: vital signs, nurses notes, lab test result(s), radiologic studies, CT scan. Consideration of Admission/Observation Escalation of care including admission/observation considered. I considered the following discharge prescriptions or medication management in the emergency department Medications were administered in the Emergency Department. See MAR. Independent interpretation of the following test(s) in the Emergency Department CT Scan: My interpretation is CT SOFT TISSUE. Test considered but Not performed: Ultrasound NO CAROTID USG. Care significantly affected by the following chronic conditions: ASTHMA. 09/03 13:57 Order name: Strep [facility] 09/03 13:57 Order name: Flu; Complete Time: 15:43 [facility] 09/03 13:57 Order name: SARS RAPID; Complete Time: 15:43 [facility] 09/03 14:47 Order name: CBC with Diff; Complete Time: 15:56 [facility] 09/03 14:47 Order name: Comprehensive Metabolic Panel; Complete Time: 15:43 [facility] 09/03 15:40 Order name: Throat Culture [facility] 09/03 14:47 Order name: CT Soft Tissue Neck W/contr; Complete Time: 16:29 kerrie Administered Medications: 14:12 Drug: AZITHromycin PO 500 mg PO once Route: PO; ss 15:15 Follow up: Response: No adverse reaction aa5 14:23 Drug: Tessalon Perle PO 100 mg PO once Route: PO; ss 15:15 Follow up: Response: No adverse reaction aa5 15:35 Follow up: Response: No adverse reaction la1 15:15 Drug: NS 0.9% IV 1000 ml IV at 1000 ml once; to be given as a bolus over 60 minutes aa5 Route: IV; Rate: 1000 ml; Site: right forearm; 16:47 Follow up: IV Status: Completed infusion; IV Intake: 1000ml ss 15:15 Drug: Decadron - Dexamethasone IVP 10 mg IVP once Route: IVP; Site: right forearm; aa5 15:20 Follow up: Response: No adverse reaction aa5 15:15 Drug: Famotidine IVP 40 mg IVP once; dilute with 10 mL 0.9% NaCl; give over 2 minutes aa5 Route: IVP; Site: right forearm; 15:20 Follow up: Response: No adverse reaction aa5 Disposition Summary: 09/03/24 16:30 Discharge Ordered Notes: Location: Home kerrie Problem: new kerrie Symptoms: have improved kerrie Condition: Stable kerrie Diagnosis - Acute pharyngitis, unspecified - VOICE CHANGES, HOARSENESS kerrie Followup: kerrie - With: Private Physician - When: 2 - 3 days - Reason: Recheck today's complaints, Continuance of care, Re-evaluation by your physician Followup: kerrie - With: Geeta Holland MD - When: 2 - 3 days - Reason: Recheck today's complaints, Continuance of care, Re-evaluation by your physician Discharge Instructions: - Discharge Summary Sheet kerrie - Hoarseness kerrie - Pharyngitis kerrie - Sore Throat kerrie - Pharyngitis, [id number] kerrie Forms: - Medication Reconciliation Form kerrie - Antibiotic Education kerrie - Prescription Opioid Use kerrie - Patient Portal Instructions [facility] - Leadership Thank You Letter [facility] Prescriptions: - dexamethasone 4 mg Oral tablet - take 1 tablet ORAL route once daily; 5 tablet; Refills: 0, Product Selection kerrie Permitted - Pepcid 20 mg Oral tablet - take 1 tablet ORAL route every 12 hours for 21 days; 42 tablet; Refills: 0, kerrie Product Selection Permitted - Mckenna-D 12 Hour 60-120 mg Oral Tablet Sustained Release 12 hr - take 1 tablet ORAL route every 12 hours As needed; 20 tablet; Refills: 0, [facility] Product Selection Permitted - Tessalon Perles 100 mg Oral Capsule - take 1 capsule ORAL route every 8 hours As needed; 15 capsule; Refills: 0, kerrie Product Selection Permitted - Zithromax 500 mg Oral Tablet - take 1 tablet ORAL route once daily for 5 days; 5 tablet; Refills: 0, Product kerrie Selection Permitted Signatures: Dispatcher [employer] EDMS Kang Oglesby MD MD cha Calderon, Audri, RN RN aa5 Nina Villeda RN RN ss Abraham Silva, POOL INSTALLER-C POOL INSTALLER-Cla1 Corrections: (The following items were deleted from the chart) 13:57 13:57 Group A Streptococcus Rapid Sc+BA.LAB.BRZ ordered. EDMS EDMS 13:57 13:57 Influenza Screen (A \T\ B)+BA.LAB.BRZ ordered. EDMS EDMS 13:57 13:57 SARS-COV-2 Antigen Rapid+I.LAB.BRZ ordered. EDMS EDMS
--- NOTE | 2024-09-03 16:30 | ER ---
Nurse's Notes [facility] Name: Carlee Campuzano Age: 58 yrs Sex: Female : 1965 Arrival Date: 09/03/2024 Time: 13:35 Bed 9 Private MD: Diagnosis: Acute pharyngitis, unspecified-VOICE CHANGES, HOARSENESS Presentation: 09/03 13:54 Chief complaint: Patient states: sore throat, cough, headache, and ear pain x 1 week aa5 ago. Coronavirus screen: cough unrelated to allergies, sore throat. Ebola Screen: Patient denies travel to an Ebola-affected area in the 21 days before illness onset. Initial Sepsis Screen: Does the patient meet any 2 criteria? No. Patient's initial sepsis screen is negative. Does the patient have a suspected source of infection? No. Patient's initial sepsis screen is negative. Risk Assessment: Do you want to hurt yourself or someone else? Patient reports no desire to harm self or others. Onset of symptoms was August 2024. 13:54 Method Of Arrival: Ambulatory aa5 13:54 Acuity: JO ANN 4 aa5 Historical: - Allergies: 13:54 Demerol; aa5 13:54 Morphine; aa5 - PMHx: 13:54 Asthma; chronic back pain; insomnia; aa5 - PSHx: 13:54 Cholecystectomy; gastric sleeve; left shoulder; Ligation of fallopian tube; right aa5 shoulder; Total abdominal hysterectomy; - Immunization history:: Adult Immunizations unknown. - Infectious Disease History:: Denies. - Social history:: Smoking status: Patient denies any tobacco usage or history of. Screenin:44 Abuse screen: Denies threats or abuse. Denies injuries from another. Nutritional ss screening: No deficits noted. Tuberculosis screening: Never had TB. Assessment: 14:44 General: Appears uncomfortable, Behavior is calm, cooperative. Pain: Complains of pain ss in throat Pain currently is 10 out of 10 on a pain scale. Pain began 2 months ago. Is continuous. Respiratory: Airway is patent Respiratory effort is even, unlabored, Respiratory pattern is regular, symmetrical. EENT: Oral mucosa is moist. Throat is reddened. Derm: Skin is pink, warm \T\ dry. normal. 15:15 Reassessment: Patient is alert, oriented x 3, equal unlabored respirations, skin aa5 warm/dry/pink. Vital Signs: 13:54 BP 131 / 99; Pulse 61; Resp 18 S; Temp 98.1(O); Pulse Ox 100% on R/A; Weight 61.23 kg aa5 (R); Height 5 ft. 4 in. (R); 13:54 Body Mass Index 23.17 (61.23 kg, 162.56 cm) aa5 ED Course: 13:38 Patient arrived in ED. ra3 13:54 Arm band placed on. aa5 13:55 Triage completed. aa5 13:56 Kang Oglesby MD is Attending Physician. ekrrie 14:12 Nina Villeda, ALEXSANDER is Primary Nurse. ss 14:12 SARS RAPID Sent. ss 14:12 Flu Sent. ss 14:12 Strep Sent. ss 15:13 CBC with Diff Sent. em1 15:13 Comprehensive Metabolic Panel Sent. em1 15:13 Initial lab(s) drawn, by me, sent to lab. Inserted saline lock: 22 gauge in right em1 forearm, using aseptic technique. Blood collected. Flushed with 10 mL NS. 16:00 CT Soft Tissue Neck W/contr In Process Unspecified. EDMS 16:29 Geeta Holland MD is Referral Physician. kerrie 16:48 No provider procedures requiring assistance completed. IV discontinued, intact, ss bleeding controlled, No redness/swelling at site. Pressure dressing applied. Administered Medications: 14:12 Drug: AZITHromycin PO 500 mg PO once Route: PO; ss 15:15 Follow up: Response: No adverse reaction aa5 14:23 Drug: Tessalon Perle PO 100 mg PO once Route: PO; ss 15:15 Follow up: Response: No adverse reaction aa5 15:35 Follow up: Response: No adverse reaction la1 15:15 Drug: NS 0.9% IV 1000 ml IV at 1000 ml once; to be given as a bolus over 60 minutes aa5 Route: IV; Rate: 1000 ml; Site: right forearm; 16:47 Follow up: IV Status: Completed infusion; IV Intake: 1000ml ss 15:15 Drug: Decadron - Dexamethasone IVP 10 mg IVP once Route: IVP; Site: right forearm; aa5 15:20 Follow up: Response: No adverse reaction aa5 15:15 Drug: Famotidine IVP 40 mg IVP once; dilute with 10 mL 0.9% NaCl; give over 2 minutes aa5 Route: IVP; Site: right forearm; 15:20 Follow up: Response: No adverse reaction aa5 Medication: 14:44 VIS not applicable for this client. ss Intake: 16:47 IV: 1000ml; Total: 1000ml. ss Outcome: 16:30 Discharge ordered by . kerrie 16:48 Discharged to home ambulatory, 16:48 Condition: good 16:48 Discharge instructions given to patient, family, Instructed on discharge instructions, follow up and referral plans. medication usage, Demonstrated understanding of instructions, follow-up care, medications, Prescriptions given X x 5 16:48 Patient left the ED. ss Signatures: Dispatcher [employer] EDMS Kang Oglesby MD MD cha Martinez, Eric em1 Kylie Valentin, RN RN aa5 Nina Villeda RN RN Alisha Nguyen ra3 Abraham Silva [facility]
[2024-09-04 04:39] VITALS: BP 131/99; TEMP 98.1; O2SAT 100
== END 2024-09-03 16:48 | disposition home or self-care (01) ==
LOC: ER 13:35
DX: J02.9 Acute pharyngitis, unspecified (principal); R49.0 Dysphonia; Z11.52 Encounter for screening for COVID-19
CPT/HCPCS: 96361; 87070; 85025; 36415; 87081; 80053; 87804 ×2; 70491; 96375; 96374; 99284; 87811; J1100; J7030

== ENCOUNTER 2024-10-13 07:15 | Day surgery (SDC) | payer OTHER ==
[2024-10-13] MEDS: ACETAMINOPHEN 500 MG TAB ONE (07:45)
[2024-10-13 07:49] LABS: Absolute Basophils 0.1 K/uL (0-0.5); Absolute Lymphocytes (CBC) 1.3 K/uL (0.7-4.9); Absolute Monocytes 0.5 K/uL (0.1-1.3); Basophils % 1.4 % (0-1.3); Hemoglobin 13.7 g/dL (12.0-15.0); Lymphocytes % 32.8 % (15.3-44.8); MCH 29.3 pg (27.0-35.0); MCHC 32.7 g/dL (32.0-36.0); MCV 89.6 fL (80-100); MPV 8.3 fL (7.6-11.3); Monocytes % 13.7 % (3.3-12.3); Neutrophils % 52.1 % (41.7-73.7); Platelets 193 thou/uL (152-406); RBC Red Blood Cell Count 4.68 M/uL (3.86-4.86); Red Cell Distribution Width 13.7 % (12.1-15.2)
[2024-10-13] MEDS: Ringers Lactate 1,000 ML IV ONE (07:50)
[2024-10-13] MEDS ORDERED: dexAMETHasone 10 MG/ML VIAL ONE (07:55)
[2024-10-13] MEDS ORDERED: ONDANSETRON 4 MG/2 ML VIAL ONE (07:55)
[2024-10-13] MEDS ORDERED: LIDOCAINE 1% MPF 5 ML VIAL ONE (07:55)
[2024-10-13] MEDS ORDERED: ROCURONIUM 50 MG/5 ML VIAL IV ONE (07:56)
[2024-10-13] MEDS ORDERED: propofoL 200 MG/20 ML VIAL IV ONE (07:56)
[2024-10-13] MEDS ORDERED: FENTANYL CITR 100 MCG/2 ML ONE (07:56)
[2024-10-13] MEDS ORDERED: MIDAZOLAM HCL 2 MG/2 ML INJ ONE (07:56)
[2024-10-13] MEDS: BUPIVACAINE 0.25% PF 10 ML VIAL ONE (08:53)
[2024-10-13] MEDS: FENTANYL CITR 100 MCG/2 ML ONE (09:33)
[2024-10-13] MEDS: HYDROMORPHONE HCL 1 MG/ML INJ ONE (09:48)
--- NOTE | 2024-10-13 10:56 | OP ---
Date of Procedure: 10/13/2024 Surgeon: SINDI OLIVER Preoperative Diagnosis: Chronic streptococcal tonsillitis. Postoperative Diagnosis: Chronic streptococcal tonsillitis. Procedure: Tonsillectomy. Anesthesia: General endotracheal anesthesia was administered. I also infiltrated approximately 10 m L of 0.25% Marcaine without epinephrine into bilateral tonsillar fossae. Specimens: Bilateral tonsils submitted to Pathology for evaluation. Estimated Blood Loss: Less than 5 mL. Complications: None. Disposition: Stable. The patient tolerated the procedure well. Indications For Procedure: Patient is a 59-year-old female who has a long-term history of chronic re current tonsillitis with many streptococcal positive infections since childhood. Her condition has b een refractory to outpatient oral antibiotic therapy. Thus, these were indications to bring the song ent to operative suite for the above-mentioned procedure. She understood. All questions were answer ed. Risks versus benefits and complications were explained in detail, and a consent form was signed which was placed in the chart. Description Of Procedure: Patient was transferred from the preoperative holding area to the operativ e suite by Department of Anesthesia, placed on the operating room table supine, sedated, and intubate d in normal fashion. Table was rotated to 90 degrees. Shoulder roll was not needed. Head and eyes were covered with sterile blue towels and moist Ray-Darion placed over the upper lip and gingiva. Patie nt was edentulous and the upper gingiva were protected with a 4 x 4 gauze. A McIvor retractor was in troduced to the right oral commissure and directed along the endotracheal tube and suspended from the Conley stand. Right tonsil was retracted at the superior pole by a straight Allis clamp. During retr action, dissection through the mucosa down the peritonsillar fascial plane was performed with monopol ar electrocautery on the setting of 20 for coagulation and 1 of cutting. Dissection continued within the plane whereby the inferior pole was amputated with suction Bovie. The left tonsil was grasped a t the superior pole with straight Allis clamps and retracted in the midline. Dissection through the mucosa down the peritonsillar fascial plane was performed with monopolar electrocautery on a setting of 20 for coagulation and 1 of cutting. Dissection continued within the plane whereby the inferior p ole was amputated with suction Bovie. Hemostasis was achieved with suction Bovie. I infiltrated ella roximately 10 mL of 0.25% Marcaine without epinephrine at the bilateral tonsillar fossae. I then ins erted a flexible orogastric tube into the esophagus and stomach and all fluid contents were removed. The patient was then de-suspended from the Pinon stand and McIvor retractor was removed. The patient 's jaw was checked and found to be in proper alignment. Head turban was removed and the patient was transferred back to Department of Anesthesia in stable condition, transferred to PACU, and subsequent ly discharged home on analgesic medication. She will follow up in 2-4 weeks or sooner, if needed. SAWYER/ANDRZEJ Voice ID: [id number] Report ID: [id number]
[2024-10-13] MEDS: HYDROCOD 2.5mg-ACETAMIN 108mg/5mL Soln ONE (11:15)
[2024-10-13 11:34] VITALS: BP 130/76; TEMP 97.7; O2SAT 100
== END 2024-10-13 12:04 | disposition home or self-care (01) ==
LOC: OR 07:15
PROVIDERS: ATTEND Otolaryngology Facial Plastic Surgery
PROC: 0CBPXZZ Excision of Tonsils, External Approach (ICD-10-PCS; principal; 2024-10-13 08:00)
DX: J03.01 Acute recurrent streptococcal tonsillitis (principal); J45.909 Unspecified asthma, uncomplicated; K21.9 Gastro-esophageal reflux disease without esophagitis; F32.A Depression, unspecified; I10 Essential (primary) hypertension; Z86.73 Personal history of transient ischemic attack (TIA), and cerebral infarction without residual deficits
CPT/HCPCS: 85025; 36415; 88304; 42826; J2704; J2003; J2250; J3010 ×2; J1100; J1171; J2405; J7120

== ENCOUNTER 2024-12-12 13:57 | Emergency (ER) | payer OTHER ==
--- OUTSIDE RECORDS SUMMARY | 2024-12-12 14:16 | XMS REPORT | Continuity of Care Document ---
Author Name Unknown Address [address] [place] [address] [employer] Address [address] [place] [id number] Care Team Providers Care Director Of Regional Sales Name Role Phone Unavailable Unavailable Unavailable
[2024-12-12] MEDS ORDERED: KETOROLAC 30 MG/ML INJ ONE (15:40)
[2024-12-12] MEDS ORDERED: DIAZEPAM 5 MG TABLET ONE (15:40)
--- NOTE | 2024-12-12 16:11 | EDPHYS ---
Physician Documentation [facility] Name: Carlee Campuzano Age: 59 yrs Sex: Female : 1965 Arrival Date: 12/12/2024 Time: 13:57 Bed DX3 Private MD: ED Physician Dillon Russo HPI: 12/12 14:34 This 59 yrs old Female presents to ER via Wheelchair with complaints of Leg Pain, Left, ms3 Back Pain. 14:34 Carlee Campuzano is a 59-year-old female who presents to the Emergency Department with ms3 complaints of leg pain and back pain. Patient states she has had back pain for 25 years. Patient's home health nurse instructed patient to come to the emergency department today as patient was experiencing left leg weakness. Patient denies bowel or bladder incontinence or retention. Patient also notes her leg went numb last night.. Historical: - Allergies: 14:29 Demerol; hb 14:29 Morphine; hb - PMHx: 14:29 Asthma; chronic back pain; insomnia; hb 14:30 Dementia; hb - PSHx: 14:29 gastric sleeve; Cholecystectomy; left shoulder; Ligation of fallopian tube; right hb shoulder; Total abdominal hysterectomy; - Immunization history:: Adult Immunizations up to date. - Infectious Disease History:: Denies. ROS: 14:34 Constitutional: Negative for fever, and chills. Cardiovascular: Negative for chest ms3 pain, and palpitations. Respiratory: Negative for shortness of breath, cough, wheezing, and pleuritic chest pain, Abdomen/GI: Negative for abdominal pain, nausea, vomiting, diarrhea, and constipation, 14:34 MS/extremity: Positive for left leg weakness, 14:34 Neuro: Positive for left leg numbness, Exam: 14:34 Constitutional: This is a well developed, well nourished patient who is awake, alert, ms3 and in no acute distress. Cardiovascular: Regular rate and rhythm with a normal S1 and S2. No gallops, murmurs, or rubs. Normal PMI, no JVD. No pulse deficits. Respiratory: Lungs have equal breath sounds bilaterally, clear to auscultation and percussion. No rales, rhonchi or wheezes noted. No increased work of breathing, no retractions or nasal flaring. Abdomen/GI: Soft, non-tender, with normal bowel sounds. No distension or tympany. No guarding or rebound. No evidence of tenderness throughout. Skin: Warm, dry with normal turgor. Normal color with no rashes, no lesions, and no evidence of cellulitis. 14:34 Musculoskeletal/extremity: Extremities: noted in the Left leg: Patient states she cannot move it. When moved it makes her back hurt, 14:34 Neuro: Sensation: Decreased sensation of left leg, Vital Signs: 14:27 BP 107 / 88; Pulse 71; Resp 16; Temp 97; Pulse Ox 100% on R/A; Weight 62.14 kg; Height hb 5 ft. 4 in. ; Pain 9/10; 14:27 Body Mass Index 23.52 (62.14 kg, 162.56 cm) hb 14:27 Pain Scale: Adult hb MDM: 14:06 Medical Screening Exam initiated ec2 14:34 Differential diagnosis: Sciatica vs DDD vs Disc Herniation. ms3 16:10 Data reviewed: vital signs, nurses notes, and as a result, I will patient left prior to ms3 MRI and completion of medical screening exam. Consideration of Admission/Observation. ED course: Patient was seen by me, but left prior to completing medical screening. MRI lumbar spine was discussed with patient.. 16:20 Test considered but Not performed: MRI: MRI lumbar spine. Counseling: I had a detailed ms3 discussion with the patient and/or guardian regarding the historical points, exam findings, and any diagnostic results supporting the discharge/admit diagnosis, the need for outpatient follow up, to return to the emergency department if symptoms worsen or persist or if there are any questions or concerns that arise at home, Reach patient by phone. Discussed with patient that she may return at any time for continued care.. Administered Medications: 16:33 Not Given (Patient Refused): [id number] mg IM once ll1 16:39 Not Given (Patient Refused): diazepam5 mg PO once ll1 Disposition Summary: 12/12/24 16:20 Discharge Ordered Notes: Location: Home ms3 Condition: Stable(12/12/24 16:20) ms3 Diagnosis - Low back pain(12/12/24 16:20) ms3 - Left leg weakness ms3 Followup: ms3 - With: Private Physician - When: 2 - 3 days - Reason: Recheck today's complaints Discharge Instructions: - Discharge Summary Sheet ms3 - Acute Back Pain, Adult ms3 Forms: - Medication Reconciliation Form ms3 - Antibiotic Education ms3 - Prescription Opioid Use ms3 - Patient Portal Instructions ms3 - Leadership Thank You Letter ms3 Signatures: Dispatcher [employer] Trudi Morales, RN RN Dillon Russo DO DO ms3 Luke Moon MD MD ec2 Nitish Regan RN ll1 Corrections: (The following items were deleted from the chart) 16:19 16:10 after being seen by provider ms3 ms3 16:19 16:10 wait time ms3 ms3 16:19 16:10 Low back pain ms3 ms3 16:19 16:10 Left Leg Weakness ms3 ms3 16:19 16:10 Undetermined ms3 ms3 16:20 14:33 Lumbar Spine Wo Con+MRI.RAD.BRZ ordered. EDMS TREVIÑO
--- NOTE | 2024-12-12 16:11 | ER ---
Nurse's Notes [facility] Name: Carlee Campuzano Age: 59 yrs Sex: Female : 1965 Arrival Date: 12/12/2024 Time: 13:57 Bed DX3 Private MD: Diagnosis: Low back pain;Left leg weakness Presentation: 12/12 14:27 Chief complaint: Mid and lower back pain that radiates left leg x 2 days, unable to hb move left leg today. Coronavirus screen: At this time, the client does not indicate any symptoms associated with coronavirus-19. Ebola Screen: No symptoms or risks identified at this time. Initial Sepsis Screen: Does the patient meet any 2 criteria? No. Patient's initial sepsis screen is negative. Does the patient have a suspected source of infection? No. Patient's initial sepsis screen is negative. Risk Assessment: Do you want to hurt yourself or someone else? Patient reports no desire to harm self or others. 14:27 Method Of Arrival: Wheelchair hb 14:29 Onset of symptoms was December 11, 2024. hb 14:31 Acuity: JO ANN 3 hb Historical: - Allergies: 14:29 Demerol; hb 14:29 Morphine; hb - PMHx: 14:29 Asthma; chronic back pain; insomnia; hb 14:30 Dementia; hb - PSHx: 14:29 gastric sleeve; Cholecystectomy; left shoulder; Ligation of fallopian tube; right hb shoulder; Total abdominal hysterectomy; - Immunization history:: Adult Immunizations up to date. - Infectious Disease History:: Denies. Assessment: 15:40 Reassessment: not in lobby when called for IV medications. ll1 16:40 Reassessment: No changes from previously documented assessment. not in lobby when ll1 called for discharge, see Dr. Russo note for further details. Vital Signs: 14:27 BP 107 / 88; Pulse 71; Resp 16; Temp 97; Pulse Ox 100% on R/A; Weight 62.14 kg; Height hb 5 ft. 4 in. ; Pain 9/10; 14:27 Body Mass Index 23.52 (62.14 kg, 162.56 cm) hb 14:27 Pain Scale: Adult hb ED Course: 13:59 Patient arrived in ED. mr 14:06 Luke Moon MD is Attending Physician. ec2 14:11 Dillon Russo DO is Attending Physician. ms3 14:29 Arm band placed on. hb 14:31 Triage completed. hb Administered Medications: 16:33 Not Given (Patient Refused): [id number] mg IM once ll1 16:39 Not Given (Patient Refused): diazepam5 mg PO once ll1 Outcome: 16:20 Discharge ordered by MD. ms3 16:41 Discharged to home ambulatory, ll1 16:41 Condition: stable 16:41 Discharge instructions given to left without discharge instructions Instructed on discharge instructions, left without discharge instructions 16:41 Patient left the ED. ll1 Signatures: Jyoti Shaffer, Reg Reg mr Trudi Ennis RN ALEXSANDER Nitish Regan RN RN [facility] Dillon Russo DO DO ms3 Luke Moon MD MD ec2 Corrections: (The following items were deleted from the chart) 14:30 14:27 Chief complaint: Mid and lower back pain that radiates right leg, unable to move hb right leg today. hb
[2024-12-12 17:03] VITALS: BP 107/88; TEMP 97; O2SAT 100
== END 2024-12-12 16:41 | disposition home or self-care (01) ==
LOC: ER 13:57
DX: M54.50 Low back pain, unspecified (principal); R53.1 Weakness
CPT/HCPCS: 99282

== ENCOUNTER 2025-02-22 22:02 | Emergency (ER) | payer OTHER ==
--- OUTSIDE RECORDS SUMMARY | 2025-02-22 22:06 | XMS REPORT | Continuity of Care Document ---
Author Name Unknown Address [address] [facility] [address] [place] [address] [facility] [place] Address [address] [facility] [address] [place] [address] Care Team Providers Care Library Attendant Name Role Phone PCP, PATIENT DOES NOT HAVE A Primary Care Physic lazarus Unavailable Brie Xie PhD Attending Clinician [phone] BRIE XIE Attending Clinician Unavailable BRIE XIE Attending Clinician Unavailable Keira Maya DO Attending Clinician [phone] KEIRA MAYA Attending Clinician Unavailab KEIRA Garcia Attending Clinician Unavailab khanh Dover MD, Bharath Garcia Attending Clinician Payers Payer Name Policy Type Policy Number Effective Date Expirati on Date Source Allergies, Adverse Reactions, Alerts Allergy Name Allergy Type Status Severity Reaction(s) Onset Date Inactive Date Treating Clinician Comments Source Venom-Ho demarcus Bee Propensi ty to adverse reaction s Active Swelling 02-07 00:00: 00 [facility] VENOM-HO DEMARCUS BEE DRUG INGREDI Active Swelling 02-07 00:00: 00 [facility] Hydromor phone Propensi ty to adverse reaction s Active Rash 11-13 00:00: 00 Pt reports she is ok with it if takes benadryl [facility] HYDROMOR PHONE DRUG INGREDI Active Low ITCHING 11-13 00:00: 00 [facility] Lisinopr il Propensi ty to adverse reaction s Active Cough 12-19 00:00: 00 [facility] LISINOPR IL DRUG INGREDI Active COUGH 12-19 00:00: 00 [facility] Levetira cetam Propensi ty to adverse reaction s Active Itching 11-13 00:00: 00 [facility] Loratadi ne Propensi ty to adverse reaction s Active Palpitations 11-13 00:00: 00 [facility] LORATADI NE DRUG INGREDI Active Palpitations 11-13 00:00: 00 [facility] LEVETIRA CETAM DRUG INGREDI Active Low Hives 11-13 00:00: 00 [facility] Morphine Propensi ty to adverse reaction s Active Shortness of Breath 2013-11 00:00: 00 [facility] MORPHINE DRUG INGREDI Active Med SOB 2013-11 00:00: 00 [facility] Clarithr omycin Propensi ty to adverse reaction s Active Nausea and/or Vomiting 12-03 00:00: 00 [facility] CLARITHR OMYCIN DRUG INGREDI Active N/V 12-03 00:00: 00 [facility] Social History Social Habit Start Date Stop Date Quantity Comments Source Sexual orientation [facility] Sex assigned at 1965 00:00:00 1965 00:00:00 [facility] Smoking Status Start Date Stop Date Source Tobacco smoking consumption unknown [facility] Medications Ordered Medication Name Filled Medication Name Start Date Stop Date Current Medication? Ordering Clinician Indication Dosage Frequency Signature (SIG) Comments Components Source albuterol 90 mcg/actuati on inhaler 01-03 13:59: 54 Yes [facility] Biotin 10,000 mcg Cap 01-03 13:59: 54 Yes 10mg Take 10 mg by mouth. [facility] diazePAM 10 mg tablet 01-03 13:59: 54 Yes [facility] DULoxetine 30 mg capsule 01-03 13:59: 54 Yes [facility] hydrOXYzine 10 mg tablet 01-03 13:59: 54 Yes 10mg Take 1 tablet by mouth. [facility]L 500 mg tablet 01-03 13:59: 54 Yes [facility] it[facility] pantoprazol e 40 mg EC tablet 01-03 13:59: 54 Yes [facility] OXcarbazepi ne 150 mg tablet 01-03 13:59: 54 Yes 150mg Take 1 tablet by mouth. [facility] traMADoL 50 mg tablet 01-03 13:59: 54 Yes [facility] famotidine 20 mg tablet 01-02 00:00: 00 Yes [facility] atorvastati n 40 mg tablet 01-01 00:00: 00 Yes [facility] NURTEC ODT 75 mg TbDL 12-27 00:00: 00 Yes [facility] sumatriptan 100 mg tablet 12-22 00:00: 00 Yes [facility] topiramate 25 mg tablet 12-22 00:00: 00 Yes [facility] ondansetron 4 mg disintegrat ing tablet 2023-11 00:00: 00 Yes DISSOLVE 1 TABLET IN MOUTH EVERY 6 HOURS NEEDED FOR NAUSEA [facility] HYDROcodone -acetaminop hen 7.5-325 mg/15 mL solution 2023-11 00:00: 00 Yes TAKE 15 ML BY MOUTH EVERY 6 HOURS NEEDED FOR PAIN [facility] estradioL (TYRONE) 0.05 mg/24 hr twice weekly patch 2023-11 00:00: 00 Yes [facility] proMETHazin e 12.5 mg tablet 2023-11 0 00:00: 00 Yes 12.5mg Take 1 tablet by mouth. [facility] albuterol 0.63 mg/3 mL nebulizer solution 04-13 00:00: 00 Yes .63mg Inhale 3 mL. [facility] fluticasone propionate 50 mcg/actuati on nasal spray - 00:00: 00 Yes 2{spray } Use 2 Sprays in each nostril in the morning. [facility] lidocaine 5 % ointment 03-14 00:00: 00 Yes Apply to area(s). [facility] Vital Signs Vital Name Observation Time Observation Value Comments S ource Systolic blood pressure 2025-01-09 22:49:00 137 mm[Hg] [facility] Diastolic blood pressure 2025-01-09 22:49:00 95 mm[Hg] [facility] Heart rate 2025-01-09 22:49:00 72 /min [facility] Body temperature 2025-01-09 22:49:00 36.83 Nickie [facility] Respiratory rate 2025-01-09 22:49:00 16 /min [facility] Body height 2025-01-09 22:49:00 162.6 cm [facility] Body weight 2025-01-09 22:49:00 61.236 kg [facility] BMI 2025-01-09 22:49:00 23.17 kg/m2 [facility] Oxygen saturation in Arterial blood by Pulse oximetry 2025-01-09 22:49:00 99 /min [facility] Systolic blood pressure 2025-01-03 20:02:00 120 mm[Hg] [facility] Diastolic blood pressure 2025-01-03 20:02:00 95 mm[Hg] [facility] Heart rate 2025-01-03 20:02:00 92 /min [facility] 2025-01-03 20:02:00 18 /min [facility] Body height 2025-01-03 20:02:00 163.8 cm [facility] Body weight 2025-01-03 20:02:00 65.318 kg [facility] BMI 2025-01-03 20:02:00 24.34 kg/m2 [facility] Oxygen saturation in Arterial blood by Pulse oximetry 2025-01-03 20:02:00 99 /min [facility] Encounters Start Date/Time End Date/Time Encounter Type Admission Type Attending Clinicians Care Facility Care Department Encounter ID Source 2025-01-24 08:00:00 2025-01-24 16:00:00 Office Visit Brie Xie [facility] [id number] [facility] 2025-01-24 08:00:00 2025-01-24 08:00:00 Outpatient R BRIE XIE [facility] [id number] [facility] 2025-01-09 16:52:00 2025-01-09 18:55:00 Emergency Keira Maya [facility] [id number] [facility] 2025-01-09 16:52:00 2025-01-09 18:55:00 Emergency X KEIRA MAYA [facility] ERT [id number] [facility] 2025-01-03 13:00:00 2025-01-03 15:10:15 Office Visit Bharath Dover [facility] [id number] [facility] Notes Date/Time Note Provider Source 2025-01-09 18:18:27 PFS called and stated this patient left. 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 ETTA JOHNSON [facility] 2025-01-09 16:48:35 Patient states: "I'm having back pain. It started today. I'm also have pain in both legs. I have disc diease" ETTA Burroughs RN [facility] - [facility] 2025-01-09 16:42:00 [facility] Emergency Department Note Patient Name: Carlee Patel Date of : 1965 59 year old female Treatment [facility]: [facility] Primary Care Physician: PATIENT DOES NOT HAVE A PCP Patient Escorted by: Self [9] Mode of Arrival: Personal means [1] EMS Treatment Prior to ED Arrival: Travel and Exposure Screening: Symptoms Does patient have any of these symptoms?: (not recorded) Exposure Screening Has patient had contact with someone with a communicable disease in the last month?: (not recorded) Diseases exposed to:: (not recorded) Is Patient ?: (not recorded) Exposure Date: (not recorded) Chief Complaint: Chief Complaint Patient presents with Back Pain History of Present Illness: The patient presents with her significant other for evaluation for acute on chronic low back pain. She reports she was at [employer] when she decided to start dancing and then started with the pain. She did not fall or injure herself. She reports the pain is worse when she bends and moves and is better when she is still. No loss of bowel or bladder function. No dysuria or hematuria. She reports the pain radiates on the back of her left leg. She reports a history of chronic back pain as well as disc disease. She recently moved here from [place] and has not established care with pain management or orthopedics as of yet. No medication taken for her pain prior to arrival. Here for evaluation. Past Medical History/Immunizations: History reviewed. No pertinent past medical history. Allergies: Allergies Allergen Reactions Morphine Shortness of Breath Clarithromycin Nausea and/or Vomiting Lisinopril Cough Loratadine Palpitations Venom-Honey Bee Swelling Hydromorphone Itching and Rash Pt reports she is ok with it if takes benadryl Levetiracetam Hives and Itching Past Social History: Substance & Sexual Activity No substance use or sexual activity history on file. Past Surgical History: History reviewed. No pertinent surgical history. Review of Systems: Review of Systems Constitutional: Negative for chills and fever. Respiratory: Negative for cough. Cardiovascular: Negative for chest pain. Gastrointestinal: Negative for abdominal pain. Genitourinary: Negative for dysuria. Musculoskeletal: Positive for back pain. Negative for neck pain and neck stiffness. Skin: Negative for wound. Neurological: Negative for dizziness. Psychiatric/Behavioral: Negative for agitation. Endocrine: Negative for goiter. Physical Exam: ED Triage Vitals [01/09/25 1649] Weight 61.2 kg (135 lb) Actual or estimated Estimated by patient/family report Height 1.626 m (5' 4") BP (!) 137/95 Pulse 72 Resp 16 Temp 36.8 ?C (98.3 ?F) Temp source Oral SpO2 99 % Measured on Room air Physical Exam Vitals and nursing note reviewed. Constitutional: Appearance: Normal appearance. She is normal weight. HENT: Head: Normocephalic and atraumatic. Cardiovascular: Rate and Rhythm: Normal rate. Pulses: Normal pulses. Pulmonary: Effort: Pulmonary effort is normal. Abdominal: General: There is no distension. Musculoskeletal: Cervical back: Neck supple. Comments: Mild vertebral body tenderness to the lumbar spine but no deformity or step-off is noted. She has paraspinal muscle tenderness to the low lumbar area on the left side but none on the right. Positive seated leg raise bilaterally. Skin: General: Skin is warm and dry. Neurological: Mental Status: She is alert and oriented to person, place, and time. Radiology: No orders to display Lab Results: Lab Results - No data to display EKG: If EKG completed, see Procedure Note. Orders and Treatments: No orders of the defined types were placed in this encounter. Orders Placed This Encounter Medications dexamethasone sod phos PF injection 10 mg HYDROcodone-acetaminophen (NORCO 5) tablet 1 tablet diazePAM (VALIUM) tablet 5 mg First Provider Eval: ED Events Date/Time Event User Comments 01/09/251645 Medical Screening Begins KEIRA MAYA DO -- 01/09/25 164 First Provider Evaluation KEIRA MAYA DO -- ED COURSE Diagnosis/Impression as of 01/09/25 1837 Acute bilateral low back pain with left-sided sciatica Procedures: Procedures MDM: Medical Decision Making The patient presents with her significant other for evaluation for acute on chronic low back pain. She reports she was at [employer] when she decided to start dancing and then started with the pain. She did not fall or injure herself. She reports the pain is worse when she bends and moves and is better when she is still. No loss of bowel or bladder function. No dysuria or hematuria. She reports the pain radiates on the back of her left leg. She reports a history of chronic back pain as well as disc disease. She recently moved here from [place] and has not established care with pain management or orthopedics as of yet. No medication taken for her pain prior to arrival. Vital signs are stable in the ER. She has tenderness to the lower vertebral bodies of her lumbar spine but no deformity or step-off is noted. She has tightness and tenderness to the paraspinal muscles of the left lumbar area and none on the right. Positive seated leg raise bilaterally. No concern for fracture or cauda equina syndrome based on her presentation. Will give the patient pain medication to help start her pain improving. Anticipate discharge home later. 183 - notified by staff that the patient left the department before receiving medication or being reevaluated. Problems Addressed: Acute bilateral low back pain with left-sided sciatica: acute illness or injury Amount and/or Complexity of Data Reviewed Independent Historian: spouse Risk Prescription drug management. Flowsheet Documentation: Scoring Tools: No data recorded Disposition/Condition: ED Disposition ED Disposition Elope - Before Dispo Condition -- Comment -- Discharge Medications: Patient's Medications START taking these medications No medications on file CONTINUE taking these medications which have NOT CHANGED ALBUTEROL 0.63 MG/3 ML NEBULIZER SOLUTION Inhale 3 mL. ALBUTEROL 90 MCG/ACTUATION INHALER ATORVASTATIN 40 MG TABLET BIOTIN 10,000 MCG CAP Take 10 mg by mouth. DIAZEPAM 10 MG TABLET DULOXETINE 30 MG CAPSULE ESTRADIOL (TYRONE) 0.05 MG/24 HR TWICE WEEKLY PATCH FAMOTIDINE 20 MG TABLET FLUTICASONE PROPIONATE 50 MCG/ACTUATION NASAL SPRAY Use 2 Sprays in each nostril in the morning. HYDROCODONE-ACETAMINOPHEN 7.5-325 MG/15 ML SOLUTION TAKE 15 ML BY MOUTH EVERY 6 HOURS NEEDED FOR PAIN HYDROXYZINE 10 MG TABLET Take 1 tablet by mouth. LIDOCAINE 5 % OINTMENT Apply to area(s). METHOCARBAMOL 500 MG TABLET NURTEC ODT 75 MG TBDL ONDANSETRON 4 MG DISINTEGRATING TABLET DISSOLVE 1 TABLET IN MOUTH EVERY 6 HOURS NEEDED FOR NAUSEA OXCARBAZEPINE 150 MG TABLET Take 1 tablet by mouth. PANTOPRAZOLE 40 MG EC TABLET PROMETHAZINE 12.5 MG TABLET Take 1 tablet by mouth. SUMATRIPTAN 100 MG TABLET TOPIRAMATE 25 MG TABLET TRAMADOL 50 MG TABLET START taking Modified Medications as Prescribed No medications on file STOP taking these medications No medications on file Follow-up: Electronically signed by: Keira Maya DO 01/09/25 1837 [facility]
--- NOTE | 2025-02-22 22:19 | RAD REPORT ---
EXAM: CT brain without contrast HISTORY: Numbness COMPARISON: 2023 TECHNIQUE: Multiple contiguous axial images were obtained and a CT of the brain without contrast. Sagittal and coronal reformats were performed. Automated exposure control, adjustment of the mA and/or kV according to patient size, and/or itera tive reconstruction. Unless otherwise specified, incidental findings do not require dedicated imaging follow-u FINDINGS: An intracranial bleed is not seen Ventricles are normal caliber No extra-axial fluid collection noted Mild low-density areas within deep and subcortical white matter probably ischemic changes secondary t o small vessel disease. No fluid within the visualized sinuses or mastoids noted. IMPRESSION: No acute intracranial abnormality noted. If the patient's symptoms persist MRI of the brain would be recommended. Leny Jaylan from the emergency room was notified at 10:16 PM February 22, 2025
--- NOTE | 2025-02-22 22:38 | RAD REPORT ---
EXAMINATION: Neck Angio CLINICAL INDICATION: Numbness TECHNIQUE: Axial CT images were obtained from the aortic arch to the skull base after intravenous adm inistration of 100 cc Isovue-370 utilizing angiographic protocol. Multiplanar reformats, as well as 3D post-processing (maximum intensity projection images, volume rendered images and/or shaded surface rendered images) were generated and reviewed. One or more of the following dose reduction techniques were used: Automated exposure control, adjustment of the mA and/or kV according to patient size, and/or iterative reconstruction. Unless otherwise specified, incidental findings do not require dedicated imaging follow-up. COMPARISON: No prior exam. FINDINGS: The visualized aortic arch and great vessels do not demonstrate a significant abnormality Mild calcified plaque within the carotid bulb bilaterally. Common carotid, external carotid and internal carotid arteries unremarkable. Distal right vertebral artery hypoplastic. Vertebral arteries are unremarkable. No significant stenosis noted. A dissection is not seen. Methods for NASCET criteria: Mild stenosis, 0% to 49%; Moderate stenosis 50% to 69%; Severe stenosis, 70% to 99% IMPRESSION: No acute vascular abnormality displayed
--- NOTE | 2025-02-22 22:39 | RAD REPORT ---
EXAMINATION: CTA HEAD CLINICAL INDICATION: Numbness TECHNIQUE: Axial CT images were obtained through the head after 100 cc Isovue-370 intravenous contras t utilizing angiographic protocol with 3D post-processing (maximum intensity projection images, volume rendered images and/or shaded surface rendered images). One or more of the following dose red uction techniques were used: Automated exposure control, adjustment of the mA and/or kV according to patient size, and/or iterative reconstruction. Unless otherwise specified, incidental findings do not require dedicated imaging follow-up. COMPARISON: None FINDINGS: origin left posterior cerebral artery. Distal internal carotid, basilar, anterior cerebral, middle cerebral and posterior cerebral arteries do not demonstrate a significant stenosis An aneurysm not noted. No large vessel occlusion IMPRESSION: No acute vascular abnormality displayed
--- NOTE | 2025-02-22 22:40 | RAD REPORT ---
Procedure: Chest Single View HISTORY: Cough COMPARISON: 2023 FINDINGS: The lungs appear clear of acute infiltrate. No significant pleural effusion noted. The heart is normal size. IMPRESSION: No acute abnormality is displayed.
[2025-02-22 22:42] LABS: PT Prothrombin Time 10.5 SECONDS (10-13.0); Protime INR 0.92
[2025-02-22 22:46] LABS: Absolute Lymphocytes (CBC) 1.6 K/uL (0.7-4.9); Absolute Monocytes 0.5 K/uL (0.1-1.3); Absolute Neutrophil 3.3 K/uL (1.8-8.0); Basophils % 0.4 % (0-1.3); Hematocrit 42.9 % (36.0-45.0); Hemoglobin 14.6 g/dL (12.0-15.0); Lymphocytes % 30.2 % (15.3-44.8); MCH 29.4 pg (27.0-35.0); MCV 86.4 fL (80-100); MPV 9.2 fL (7.6-11.3); Neutrophils % 60.4 % (41.7-73.7); Nucleated Red Blood Cells % 0.1 % (0-0); Platelets 195 thou/uL (152-406); RBC Red Blood Cell Count 4.96 M/uL (3.86-4.86); Red Cell Distribution Width 14.5 % (12.1-15.2)
[2025-02-22 22:53] LABS: ALT/SGPT 22 U/L (13-56); AST/SGOT 24 U/L (15-37); Albumin/Globulin Ratio 1.2 (1.1-1.8); Alkaline Phosphatase 110 U/L (45-117); Anion Gap 8.1 mEq/L (5.0-15.0); BUN Blood Urea Nitrogen 13 mg/dL (7-18); Bicarbonate 27 mEq/L (21-32); Bilirubin Total 0.4 mg/dL (0.2-1.0); Globulin 3.3 g/dL (2.3-3.5); Glomerular Filtration Rate 77 ml/min (=/>90); Glucose Level 95 mg/dL (74-106); Magnesium 2.3 mg/dL (1.6-2.4); NT PRO-BNP 30 pg/mL (<125); Potassium 4.1 mEq/L (3.5-5.1); Protein, Total 7.3 g/dL (6.4-8.2); Sodium Level 140 mEq/L (136-145)
--- NOTE | 2025-02-22 23:00 | EDPHYS ---
Physician Documentation [facility] Name: Carlee Campuzano Age: 59 yrs Sex: Female : 1965 Arrival Date: 02/22/2025 Time: 22:02 Bed 4 Private MD: ED Physician Kang Oglesby HPI: 02/22 22:43 This 59 yrs old Female presents to ER via EMS with complaints of S/S of kerrie Possible Stroke. 22:43 The patient's problem is reported as paresthesias, weakness, in the right upper kerrie extremity, in the right lower extremity. Onset: The symptoms/episode began/occurred suddenly, at 17:20. Duration: This was a single incident. The symptoms are alleviated by nothing. The symptoms are aggravated by walking. Associated signs and symptoms: The patient has no apparent associated signs or symptoms. Severity of symptoms: At their worst the symptoms were moderate in the emergency department the symptoms have improved moderately. Patient's baseline: Neuro: alert and fully oriented, Motor: right-sided weakness, Ambulation: Speech: slow, slurred. The patient has experienced similar episodes in the past, a few times. Historical: - Allergies: 22:28 Demerol; lg3 22:28 Morphine; lg3 22:28 Keppra; lg3 - Home Meds: 22:28 Unable to obtain [Active]; lg3 - PMHx: 22:28 Asthma; chronic back pain; Dementia; insomnia; TIA (insomnia); Seizure; sleep apnea; lg3 Migraine; - PSHx: 22:28 Cholecystectomy; gastric sleeve; left shoulder; Ligation of fallopian tube; right lg3 shoulder; Total abdominal hysterectomy; Tonsillectomy; - Immunization history:: Adult Immunizations up to date. - Infectious Disease History:: Denies. - Social history:: Smoking status: Patient denies any tobacco usage or history of. Patient/guardian denies using alcohol, street drugs. ROS: 22:49 Constitutional: Negative for fever, chills, and weight loss, Eyes: Negative for injury, kerrie pain, redness, and discharge, ENT: Negative for injury, pain, and discharge, Neck: Negative for injury, pain, and swelling, Cardiovascular: Negative for chest pain, palpitations, and edema, Respiratory: Negative for shortness of breath, cough, wheezing, and pleuritic chest pain, Abdomen/GI: Negative for abdominal pain, nausea, vomiting, diarrhea, and constipation, Back: Negative for injury and pain, : Negative for injury, bleeding, discharge, and swelling, MS/Extremity: Negative for injury and deformity, Skin: Negative for injury, rash, and discoloration, Psych: Negative for depression, anxiety, suicide ideation, homicidal ideation, and hallucinations, Allergy/Immunology: Negative for hives, rash, and allergies, Endocrine: Negative for neck swelling, polydipsia, polyuria, polyphagia, and marked weight changes, Hematologic/Lymphatic: Negative for swollen nodes, abnormal bleeding, and unusual bruising, 22:49 Neuro: Positive for headache, speech changes, weakness, of the right arm and right leg, Exam: 22:50 Radiologist reports: NEG kerrie 22:50 Constitutional: This is a well developed, well nourished patient who is awake, alert, and in no acute distress. Head/Face: Normocephalic, atraumatic. Eyes: Pupils equal round and reactive to light, extra-ocular motions intact. Lids and lashes normal. Conjunctiva and sclera are non-icteric and not injected. Cornea within normal limits. Periorbital areas with no swelling, redness, or edema. ENT: Nares patent. No nasal discharge, no septal abnormalities noted. Tympanic membranes are normal and external auditory canals are clear. Oropharynx with no redness, swelling, or masses, exudates, or evidence of obstruction, uvula midline. Mucous membranes moist. Neck: Trachea midline, no thyromegaly or masses palpated, and no cervical lymphadenopathy. Supple, full range of motion without nuchal rigidity, or vertebral point tenderness. No Meningismus. Chest/axilla: Normal chest wall appearance and motion. Nontender with no deformity. No lesions are appreciated. Cardiovascular: Regular rate and rhythm with a normal S1 and S2. No gallops, murmurs, or rubs. Normal PMI, no JVD. No pulse deficits. Respiratory: Lungs have equal breath sounds bilaterally, clear to auscultation and percussion. No rales, rhonchi or wheezes noted. No increased work of breathing, no retractions or nasal flaring. Abdomen/GI: Soft, non-tender, with normal bowel sounds. No distension or tympany. No guarding or rebound. No evidence of tenderness throughout. Back: No spinal tenderness. No costovertebral tenderness. Full range of motion. Female : Normal external genitalia. Skin: Warm, dry with normal turgor. Normal color with no rashes, no lesions, and no evidence of cellulitis. MS/ Extremity: Pulses equal, no cyanosis. Neurovascular intact. Full, normal range of motion., bilateral aka Psych: Awake, alert, with orientation to person, place and time. Behavior, mood, and affect are within normal limits. 22:50 ECG was reviewed by the Attending Physician. 22:50 Musculoskeletal/extremity: ROM: full active range of motion, full passive range of motion, in all extremities, Circulation is intact in all extremities. the right arm and right leg decreased sensation, Compartment Syndrome exam of affected extremity: is normal. DVT Exam: No signs of deep vein thrombosis. no pain, no swelling, no tenderness, negative Homans' sign noted on exam, no appreciated bluish discoloration, no erythema, no increased warmth, Vital Signs: 22:03 BP 140 / 99; Pulse 60; Resp 16 S; Temp 97.8(O); Pulse Ox 100% on R/A; Weight 62.14 kg lg3 (R); Height 5 ft. 4 in. (R); Pain 5/10; 22:30 BP 159 / 101; Pulse 67; Resp 16; Pulse Ox 100% on R/A; lg3 23:00 BP 140 / 89; Pulse 56; Resp 17 S; Pulse Ox 99% on R/A; lg3 23:30 BP 151 / 93; Pulse 63; Resp 16 S; Pulse Ox 98% on R/A; lg3 02/23 00:00 BP 146 / 90; Pulse 59; Resp 17 S; Pulse Ox 99% on R/A; lg3 00:30 BP 148 / 87; Pulse 61; Resp 16; Pulse Ox 99% on R/A; lg3 01:00 BP 143 / 84; Pulse 64; Resp 16; Pulse Ox 99% on R/A; dd2 01:30 BP 145 / 85; Pulse 61; Resp 16; Pulse Ox 100% on R/A; dd2 02/22 22:03 Body Mass Index 23.52 (62.14 kg, 162.56 cm) 3 02/22 22:03 Pain Scale: Adult lg3 NIH Stroke Scale Scores: 02/22 22:03 NIHSS Score: 3 lg3 22:50 NIHSS Score: 2 kerrie 23:00 NIHSS Score: 0 lg3 Vilma Coma Score: 22:50 Eye Response: spontaneous(4). Motor Response: obeys commands(6). Verbal Response: kerrie oriented(5). Total: 15. MDM: 22:03 Medical Screening Exam initiated kerrie 22:52 Differential diagnosis: CVA, TIA, Dementia, paralysis, metabolic disorder. TNKase kerrie (Tenecteplase) Screening: Contraindications: Other: TIME 5 HRS 20 MINUTES, CONFIRMED. Data reviewed: vital signs, nurses notes, lab test result(s), EKG, radiologic studies, plain films. Consideration of Admission/Observation Escalation of care including admission/observation considered. I considered the following discharge prescriptions or medication management in the emergency department Medications were administered in the Emergency Department. See MAR. Independent interpretation of the following test(s) in the Emergency Department EKG: See my EKG interpretation above. Test considered but Not performed: MRI: NO MRI BRAIN. Historians other than the Patient: Spouse/Significant Other: WELL INFORMED. Care significantly affected by the following chronic conditions: CHI, ASTHMA, DEMENTIA, SLEEP APNEA, CBP. 02/22 22:05 Order name: Basic Metabolic Panel; Complete Time: 23:24 kerrie 02/22 22:05 Order name: CBC with Diff; Complete Time: 23:24 kerrie 02/22 22:05 Order name: LFT's; Complete Time: 23:24 kerrie 02/22 22:05 Order name: Magnesium; Complete Time: 23:24 kerrie 02/22 22:05 Order name: NT PRO-BNP; Complete Time: 23:24 kerrie 02/22 22:05 Order name: PT-INR; Complete Time: 23:24 kerrie 02/22 22:05 Order name: Troponin HS; Complete Time: 23:24 kerrie 02/22 22:05 Order name: CRP; Complete Time: 23:24 kerrie 02/22 22:48 Order name: Glucose, Ancillary Testing; Complete Time: 23:24 EDMS 02/22 22:52 Order name: ETOH Level; Complete Time: 23:24 rv1 02/22 22:05 Order name: XRAY Chest (1 view); Complete Time: 22:42 kerrie 02/22 22:05 Order name: CT Stroke Brain w/o Contrast; Complete Time: 22:42 [facility] 02/22 22:05 Order name: CT Head Angio; Complete Time: : [facility] 02/22 22:05 Order name: CT Neck Angio; Complete Time: : [facility] 02/22 22:05 Order name: Cardiac monitoring; Complete Time: :42 [facility] 02/22 22:05 Order name: EKG - Nurse/Tech; Complete Time: :42 [facility] 02/22 22:05 Order name: IV Saline Lock; Complete Time: 23:29 [facility] 02/22 22:05 Order name: Labs collected and sent; Complete Time: 23:29 [facility] 02/22 22:05 Order name: O2 Per Protocol; Complete Time: : [facility] 02/22 22:05 Order name: O2 Sat Monitoring; Complete Time: : [facility] EC:50 Rate is 55 beats/min. Rhythm is regular. QRS [place] is Normal. MT interval is normal. QRS kerrie interval is normal. QT interval is normal. No Q waves. T waves are Normal. No ST changes noted. Clinical impression: NSR w/ Non-specific ST/T Changes and No evidence of ischemia. Interpreted by me. Reviewed by me. Administered Medications: 23:21 Drug: Famotidine IVP 20 mg IVP once; dilute with 10 mL 0.9% NaCl; give over 2 minutes lg3 Route: IVP; Site: right antecubital; 02/23 00:34 Follow up: Response: No adverse reaction [facility] 02/22 23:21 Drug: NS 0.9% IV 1000 ml IV at 1000 ml once; to be given as a bolus over 60 minutes lg3 Route: IV; Rate: 1000 ml; Site: right antecubital; 02/23 00:34 Follow up: Response: No adverse reaction; IV Status: Completed infusion; IV Intake: lg3 1000ml 02/22 23:21 Drug: foLIC Acid IVPB 1 mg IVPB once Route: IVPB; Site: right antecubital; 3 02/23 00:34 Follow up: Response: No adverse reaction; IV Status: Completed infusion; IV Intake: lg3 0.2ml 02/22 23:21 Drug: Aspirin PO Chewable Tablet 324 mg PO once; 81 mg tablets x 4 Route: PO; lg3 02/23 00:34 Follow up: Response: No adverse reaction [facility] 02/22 23:21 Drug: Ondansetron IVP 4 mg IVP once; over 2 minutes Route: IVP; Site: right antecubital;lg3 02/23 00:33 Follow up: Response: No adverse reaction; Marked relief of symptoms lg3 02/22 23:21 Drug: Clopidogrel PO 75 mg PO once Route: PO; lg3 02/23 00:33 Follow up: Response: No adverse reaction lg3 02/22 23:22 Drug: fentaNYL (PF) IVP 50 mcg IVP once Route: IVP; Site: right antecubital; lg3 02/23 00:33 Follow up: Response: No adverse reaction; Marked relief of symptoms lg3 Point of Care Testing: Blood Glucose: 01:51 Blood Glucose: 84 mg/dL; dd2 Ranges: Critical Glucose Levels:Adult <50 mg/dl or >400 mg/dl <40 mg/dl or >180 mg/dl Disposition Summary: 02/23/25 00:55 Left Against Medical Advice Notes: Location: Home kerrie Problem: new(02/23/25 00:55) kerrie Symptoms: have improved(02/23/25 00:55) kerrie Condition: Undetermined(02/23/25 00:55) kerrie Diagnosis - Cerebral infarction, unspecified(02/23/25 00:55) kerrie - Aphasia(02/23/25 00:55) kerrie - Headache(02/23/25 00:55) kerrie Followup: kerrie - With: Private Physician - When: Upon discharge from the Emergency Department - Reason: Recheck today's complaints, Continuance of care, Re-evaluation by your physician Discharge Instructions: - Discharge Summary Sheet kerrie - General Headache Without Cause kerrie - Migraine Headache kerrie - Ischemic Stroke kerrie - Stroke Prevention kerrie - Thrombolytic Treatment for Ischemic Stroke kerrie - Aspirin and Your Heart kerrie - Ischemic Stroke, [id number] kerrie - Medicines After an Ischemic Stroke kerrie - Supporting Someone After a Stroke kerrie Prescriptions: - Plavix 75 mg Oral Tablet - take 1 tablet ORAL route once daily; 20 tablet; Refills: 0, Product Selection kerrie Permitted - Folic Acid 1 mg Oral Tablet - take 1 tablet ORAL route once daily; 30 tablet; Refills: 0, Product Selection kerrie Permitted NIH Stroke Scale - NIH Stroke Score Date: 02/22/2025 Time: 22:03 Total Score = 3 10. Dysarthria (speech clarity - read or repeat words) - 1(Mild to Moderate) 11. Extinction and Inattention (visual/tactile/auditory/spatial/personal) - 0(No abnormality) 1a. Level of Consciousness (LOC) - 0(Alert) 1b. Level of Consciousness (LOC) (Month \T\ Age) - 0(Both) 1c. LOC Commands (Open \T\ Closes Eyes/Mold Maker Plastic Molds) - 0(Both) 2. Best Gaze (Lateral Gaze Paresis) - 0(Normal) 3. Visual Field Loss - 0(No visual loss) 4. Facial Palsy - 0(Normal) 5a. Left Arm: Motor (10-second hold) - 0(No drift) 5b. Right Arm: Motor (10-second hold) - 0(No drift) 6a. Left Leg: Motor (5-second hold - always test supine) - 0(No drift) 6b. Right Leg: Motor (5-second hold - always test supine) - 0(No drift) 7. Limb Ataxia (finger/nose \T\ heel/han - test with eyes open) - 0(Absent) 8. Sensory Loss (pinprick arms/legs/face) - 1(Mild to moderate loss) 9. Best Language: Aphasia (description/naming/reading) - 1(Mild to moderate aphasia) Initials: lg3 NIH Stroke Scale - NIH Stroke Score Date: 02/22/2025 Time: 22:50 Total Score = 2 10. Dysarthria (speech clarity - read or repeat words) - 0(Normal) 11. Extinction and Inattention (visual/tactile/auditory/spatial/personal) - 0(No abnormality) 1a. Level of Consciousness (LOC) - 0(Alert) 1b. Level of Consciousness (LOC) (Month \T\ Age) - 0(Both) 1c. LOC Commands (Open \T\ Closes Eyes/Mold Maker Plastic Molds) - 0(Both) 2. Best Gaze (Lateral Gaze Paresis) - 0(Normal) 3. Visual Field Loss - 0(No visual loss) 4. Facial Palsy - 0(Normal) 5a. Left Arm: Motor (10-second hold) - 0(No drift) 5b. Right Arm: Motor (10-second hold) - 0(No drift) 6a. Left Leg: Motor (5-second hold - always test supine) - 0(No drift) 6b. Right Leg: Motor (5-second hold - always test supine) - 0(No drift) 7. Limb Ataxia (finger/nose \T\ heel/han - test with eyes open) - 0(Absent) 8. Sensory Loss (pinprick arms/legs/face) - 1(Mild to moderate loss) 9. Best Language: Aphasia (description/naming/reading) - 1(Mild to moderate aphasia) Initials: kerrie NIH Stroke Scale - NIH Stroke Score Date: 02/22/2025 Time: 23:00 Total Score = 0 10. Dysarthria (speech clarity - read or repeat words) - 0(Normal) 11. Extinction and Inattention (visual/tactile/auditory/spatial/personal) - 0(No abnormality) 1a. Level of Consciousness (LOC) - 0(Alert) 1b. Level of Consciousness (LOC) (Month \T\ Age) - 0(Both) 1c. LOC Commands (Open \T\ Closes Eyes/Mold Maker Plastic Molds) - 0(Both) 2. Best Gaze (Lateral Gaze Paresis) - 0(Normal) 3. Visual Field Loss - 0(No visual loss) 4. Facial Palsy - 0(Normal) 5a. Left Arm: Motor (10-second hold) - 0(No drift) 5b. Right Arm: Motor (10-second hold) - 0(No drift) 6a. Left Leg: Motor (5-second hold - always test supine) - 0(No drift) 6b. Right Leg: Motor (5-second hold - always test supine) - 0(No drift) 7. Limb Ataxia (finger/nose \T\ heel/han - test with eyes open) - 0(Absent) 8. Sensory Loss (pinprick arms/legs/face) - 0(Normal) 9. Best Language: Aphasia (description/naming/reading) - 0(No aphasia) Initials: lg3 Signatures: Dispatcher [employer] EDMS Kang Oglesby MD MD cha Able, Lacie RN RN lg3 Sara Carney RN RN [id number] Corrections: (The following items were deleted from the chart) 02/22 22:05 22:05 BASIC METABOLIC PANEL+C.LAB.BRZ ordered. EDMS EDMS 22:05 22:05 CBC+H.LAB.BRZ ordered. EDMS EDMS 22:05 22:05 HEPATIC FUNCTION+C.LAB.BRZ ordered. EDMS EDMS 22:05 22:05 MAGNESIUM+C.LAB.BRZ ordered. EDMS EDMS 22:05 22:05 PROBNP+C.LAB.BRZ ordered. EDMS EDMS 22:05 22:05 PROTIME (+INR)+COAG.LAB.BRZ ordered. EDMS EDMS 22:05 22:05 Troponin High Sensitivity+C.LAB.BRZ ordered. EDMS EDMS 22:05 22:05 C-REACTIVE PROTEIN+C.LAB.BRZ ordered. EDMS EDMS 22:05 22:05 Chest Single View+RAD.RAD.BRZ ordered. EDMS EDMS 22:06 22:05 CT-STROKE BRAIN W/O CONTRAST+CT.RAD.BRZ ordered. EDMS EDMS 22:06 22:06 Head Angio+CT.RAD.BRZ ordered. EDMS EDMS 22:06 22:06 Neck Angio+CT.RAD.BRZ ordered. EDMS EDMS 22:06 22:06 Urinalysis+U.LAB.BRZ ordered. EDMS EDMS 22:52 22:52 ETHANOL+C.LAB.BRZ ordered. EDMS EDMS 02/23 00:53 02/22 23:00 [facility] kerrie kerrie 02/23 00:53 02/22 23:00 [facility] kerrie kerrie 02/23 00:53 02/22 23:00 Higher level of care kerrie kerrie 02/23 00:53 02/22 23:00 Fair kerrie kerrie 02/23 00:53 02/22 23:00 new kerrie kerrie 02/23 00:53 02/22 23:00 have improved kerrie kerrie 02/23 00:53 02/22 23:00 Cerebral infarction, unspecified - PRESENTED AFTER 4.5 HOUR WINDOW, kerrie RIGHT SIDED WEAKNESS AND SENSORY DEFICIT kerrie 02/23 00:53 02/22 23:00 Headache kerrie kerrie 02/23 00:53 02/22 23:00 Aphasia kerrie kerrie
--- NOTE | 2025-02-22 23:00 | ER ---
Nurse's Notes [facility] Name: Carlee Campuzano Age: 59 yrs Sex: Female : 1965 Arrival Date: 02/22/2025 Time: 22:02 Bed 4 Private MD: Diagnosis: Cerebral infarction, unspecified;Aphasia;Headache Presentation: 02/22 22:03 Chief complaint: Patient states: 1700 new onset headache, dizziness, nausea, right arm lg3 numbness, slurred speech, brain fog. history of migraines. Coronavirus screen: Client denies travel out of the [place] in the last 14 days. At this time, the client does not indicate any symptoms associated with coronavirus-19. Ebola Screen: No symptoms or risks identified at this time. No acute neurological deficit is noted. Pre-hospital glucose is not applicable to this patient. Initial Sepsis Screen: Does the patient meet any 2 criteria? No. Patient's initial sepsis screen is negative. Does the patient have a suspected source of infection? No. Patient's initial sepsis screen is negative. Risk Assessment: Do you want to hurt yourself or someone else? Patient reports no desire to harm self or others. Onset of symptoms was February 22, 2025 at 17:00. 22:03 Method Of Arrival: EMS: [place] [id number] 22:03 Acuity: JO ANN 2 lg3 Triage Assessment: 22:28 The onset of the patients symptoms was February 22, 2025 at 17:00. General: Appears in no lg3 apparent distress. uncomfortable, Behavior is calm, cooperative. Pain: Complains of pain in head. EENT: No deficits noted. No signs and/or symptoms were reported regarding the EENT system. Neuro: Dangelo Agitation-Sedation Scale (RASS): 0 - Alert and Calm Level of Consciousness is awake, alert, obeys commands, Oriented to person, place, time, situation, Reports dizziness, headache numbness in right arm weakness. Neuro: Set Up Mechanic Automatic Line are equal bilaterally Moves all extremities. Full function Speech is slurred, Facial symmetry appears normal. Cardiovascular: No deficits noted. Denies chest pain, shortness of breath, Capillary refill < 3 seconds Clubbing of nail beds is absent JVD is absent Patient's skin is warm and dry. Respiratory: No deficits noted. Airway is patent Respiratory effort is even, unlabored, Respiratory pattern is regular, symmetrical. GI: No deficits noted. No signs and/or symptoms were reported involving the gastrointestinal system. : No signs and/or symptoms were reported regarding the genitourinary system. Derm: No deficits noted. No signs and/or symptoms reported regarding the dermatologic system. Skin is intact, is healthy with good turgor, Skin is dry, Skin is normal, Skin temperature is warm. Musculoskeletal: No deficits noted. Circulation, motion, and sensation intact. Range of motion: intact in all extremities. Stroke Activation: Physician: ED Attending; Name: Mendel; Notified At: ; Arrived At: Physician: Mid-Level Provider; Name: ; Notified At: ; Arrived At: Physician: [not used]; Name: ; Notified At: ; Arrived At: Physician: [not used]; Name: ; Notified At: ; Arrived At: Physician: [not used]; Name: ; Notified At: ; Arrived At: Historical: - Allergies: 22:28 Demerol; lg3 22:28 Morphine; lg3 22:28 Keppra; lg3 - Home Meds: 22:28 Unable to obtain [Active]; lg3 - PMHx: 22:28 Asthma; chronic back pain; Dementia; insomnia; TIA (insomnia); Seizure; sleep apnea; lg3 Migraine; - PSHx: 22:28 Cholecystectomy; gastric sleeve; left shoulder; Ligation of fallopian tube; right lg3 shoulder; Total abdominal hysterectomy; Tonsillectomy; - Immunization history:: Adult Immunizations up to date. - Infectious Disease History:: Denies. - Social history:: Smoking status: Patient denies any tobacco usage or history of. Patient/guardian denies using alcohol, street drugs. Screenin:03 [facility] ED Fall Risk Assessment (Adult) History of falling in the last 3 months, lg3 including since admission No falls in past 3 months (0 pts) Confusion or Disorientation No (0 pts) Intoxicated or Sedated No (0 pts) Impaired Gait No (0 pts) Mobility Assist Device Used No (0 pt) Altered Elimination No (0 pt) Score/Fall Risk Level 0 - 2 = Low Risk Oriented to surroundings, Maintained a safe environment, Educated pt \T\ family on fall prevention, incl call for assistance when getting out of bed, Assessed \T\ reinforced patient's understanding of fall precautions. Abuse screen: Denies threats or abuse. Denies injuries from another. Nutritional screening: No deficits noted. Tuberculosis screening: No symptoms or risk factors identified. Assessment: 22:03 VAN Scoring: Arm Drift: Patients demonstrates NO arm weakness. Patient is VAN Negative. lg3 Visual Disturbance: No visual disturbance noted. Aphasia: Expressive aphasia noted. Provider notified of +VAN scoring. TNKase (Tenecteplase) Screening: Contraindications: Patient reports onset of signs and symptoms of stroke greater than 6 hours ago:. 22:03 [facility] Protocol Brief Cognitive Screen What is your name? Normal, Where are you lg3 right now? Normal, What year is it? Normal. Oral Mechanism Examination Facial Symmetry: Normal, Motion: Normal, Lip Closure: Normal, Oral Mechanism Result: Normal. 3 oz Water Swallow Challenge: Pt able to drink all water without stopping, coughing, choking or throat clearing: Yes Result: PASS. 23:00 Reassessment: Patient appears in no apparent distress at this time. Patient is alert, lg3 oriented x 3, equal unlabored respirations, skin warm/dry/pink. Patient is alert/active/playful, equal unlabored respirations, skin warm/dry/pink. Patient states feeling better. Patient states symptoms have improved. Neuro: Speech is normal. 23:03 [facility] Protocol Exclusion Criteria: Exclusion Criteria Result: Proceed. lg3 23:03 [facility] Protocol Notified: Kang Oglesby MD. dd2 02/23 00:30 Reassessment: Patient appears in no apparent distress at this time. No changes from lg3 previously documented assessment. Patient and/or family updated on plan of care and expected duration. Pain level reassessed. Patient is alert, oriented x 3, equal unlabored respirations, skin warm/dry/pink. Vital Signs: 02/22 22:03 BP 140 / 99; Pulse 60; Resp 16 S; Temp 97.8(O); Pulse Ox 100% on R/A; Weight 62.14 kg lg3 (R); Height 5 ft. 4 in. (R); Pain 5/10; 22:30 BP 159 / 101; Pulse 67; Resp 16; Pulse Ox 100% on R/A; lg3 23:00 BP 140 / 89; Pulse 56; Resp 17 S; Pulse Ox 99% on R/A; lg3 23:30 BP 151 / 93; Pulse 63; Resp 16 S; Pulse Ox 98% on R/A; lg3 02/23 00:00 BP 146 / 90; Pulse 59; Resp 17 S; Pulse Ox 99% on R/A; lg3 00:30 BP 148 / 87; Pulse 61; Resp 16; Pulse Ox 99% on R/A; lg3 01:00 BP 143 / 84; Pulse 64; Resp 16; Pulse Ox 99% on R/A; dd2 01:30 BP 145 / 85; Pulse 61; Resp 16; Pulse Ox 100% on R/A; dd2 02/22 22:03 Body Mass Index 23.52 (62.14 kg, 162.56 cm) lg3 02/22 22:03 Pain Scale: Adult lg3 Vilma Coma Score: 02/22 22:50 Eye Response: spontaneous(4). Motor Response: obeys commands(6). Verbal Response: kerrie oriented(5). Total: 15. NIH Stroke Scale Scores: 22:03 NIHSS Score: 3 lg3 22:50 NIHSS Score: 2 kerrie 23:00 NIHSS Score: 0 lg3 ED Course: 22:03 Patient arrived in ED. vc1 22:03 Kang Oglesby MD is Attending Physician. kerrie 22:03 Patient has correct armband on for positive identification. Placed in gown. Bed in low lg3 position. Call light in reach. Side rails up X2. Client placed on continuous cardiac and pulse oximetry monitoring. NIBP monitoring applied. clin tech on. Door closed. Noise minimized. Warm blanket given. Pillow given. 22:03 Initial lab(s) drawn, by ED staff, sent to lab. EKG done, by ED staff, reviewed by lg3 Kang Oglesby MD. Inserted saline lock: 22 gauge in left antecubital area, using aseptic technique. Blood collected. Flushed with 10 mL NS. Patient maintains SpO2 saturation greater than 95% on room air. 22:14 CT Stroke Brain w/o Contrast In Process Unspecified. EDMS 22:17 CT Head Angio In Process Unspecified. EDMS 22:18 CT Neck Angio In Process Unspecified. EDMS 22:28 Triage completed. lg3 22:28 Arm band placed on left wrist. lg3 22:32 XRAY Chest (1 view) In Process Unspecified. EDMS 22:33 Adalgisa Russ RN is Primary Nurse. lg3 22:45 Initiated transfer with Tiffani at [facility]. rv1 23:11 Doc to Doc with neuro at [facility]. rv1 23:21 Doc to Doc with hospitalist at [facility]. rv1 02/23 00:36 Pt accepted by hospitalist to [facility] pending bed assignment. Patient is rv1 placed on a wait list for the next available bed per Tiffani. Provider notified. 01:38 No provider procedures requiring assistance completed. IV discontinued, intact, dd2 bleeding controlled, No redness/swelling at site. Pressure dressing applied. 01:51 Provided Education on: F/U INSTRUCTIONS. dd2 Administered Medications: 02/22 23:21 Drug: Famotidine IVP 20 mg IVP once; dilute with 10 mL 0.9% NaCl; give over 2 minutes lg3 Route: IVP; Site: right antecubital; 02/23 00:34 Follow up: Response: No adverse reaction lg3 02/22 23:21 Drug: NS 0.9% IV 1000 ml IV at 1000 ml once; to be given as a bolus over 60 minutes lg3 Route: IV; Rate: 1000 ml; Site: right antecubital; 02/23 00:34 Follow up: Response: No adverse reaction; IV Status: Completed infusion; IV Intake: lg3 1000ml 02/22 23:21 Drug: foLIC Acid IVPB 1 mg IVPB once Route: IVPB; Site: right antecubital; lg3 02/23 00:34 Follow up: Response: No adverse reaction; IV Status: Completed infusion; IV Intake: lg3 0.2ml 02/22 23:21 Drug: Aspirin PO Chewable Tablet 324 mg PO once; 81 mg tablets x 4 Route: PO; lg3 02/23 00:34 Follow up: Response: No adverse reaction lg3 02/22 23:21 Drug: Ondansetron IVP 4 mg IVP once; over 2 minutes Route: IVP; Site: right antecubital;lg3 02/23 00:33 Follow up: Response: No adverse reaction; Marked relief of symptoms lg3 02/22 23:21 Drug: Clopidogrel PO 75 mg PO once Route: PO; lg3 02/23 00:33 Follow up: Response: No adverse reaction 3 04/16 23:22 Drug: fentaNYL (PF) IVP 50 mcg IVP once Route: IVP; Site: right antecubital; lg3 02/23 00:33 Follow up: Response: No adverse reaction; Marked relief of symptoms lg3 Medication: 01:51 VIS not applicable for this client. dd2 Point of Care Testing: Blood Glucose: 01:51 Blood Glucose: 84 mg/dL; dd2 Ranges: Intake: 00:34 IV: 0ml; Total: 0ml. lg3 00:34 IV: 1000ml; Total: 1000ml. lg3 Outcome: 02/22 23:00 ER care complete, transfer ordered by MD. sy 02/23 01:38 AMA AMA form signed dd2 Condition: stable 01:50 Discharge instructions given to patient, Instructed on PT LEAVING AMA. EDUCATED PT TO dd2 RETURN TO THE ER WITH CONTINUED OR WORSENING SYMPTOMS. ADVISED PT TO CALL PCP AND NEUROLOGIST FOR F/U Demonstrated understanding of instructions, 01:52 Patient left the ED. dd2 NIH Stroke Scale - NIH Stroke Score Date: 02/22/2025 Time: 22:03 Total Score = 3 10. Dysarthria (speech clarity - read or repeat words) - 1(Mild to Moderate) 11. Extinction and Inattention (visual/tactile/auditory/spatial/personal) - 0(No abnormality) 1a. Level of Consciousness (LOC) - 0(Alert) 1b. Level of Consciousness (LOC) (Month \T\ Age) - 0(Both) 1c. LOC Commands (Open \T\ Closes Eyes/Email Designer) - 0(Both) 2. Best Gaze (Lateral Gaze Paresis) - 0(Normal) 3. Visual Field Loss - 0(No visual loss) 4. Facial Palsy - 0(Normal) 5a. Left Arm: Motor (10-second hold) - 0(No drift) 5b. Right Arm: Motor (10-second hold) - 0(No drift) 6a. Left Leg: Motor (5-second hold - always test supine) - 0(No drift) 6b. Right Leg: Motor (5-second hold - always test supine) - 0(No drift) 7. Limb Ataxia (finger/nose \T\ heel/han - test with eyes open) - 0(Absent) 8. Sensory Loss (pinprick arms/legs/face) - 1(Mild to moderate loss) 9. Best Language: Aphasia (description/naming/reading) - 1(Mild to moderate aphasia) Initials: lg3 NIH Stroke Scale - NIH Stroke Score Date: 02/22/2025 Time: 22:50 Total Score = 2 10. Dysarthria (speech clarity - read or repeat words) - 0(Normal) 11. Extinction and Inattention (visual/tactile/auditory/spatial/personal) - 0(No abnormality) 1a. Level of Consciousness (LOC) - 0(Alert) 1b. Level of Consciousness (LOC) (Month \T\ Age) - 0(Both) 1c. LOC Commands (Open \T\ Closes Eyes/Email Designer) - 0(Both) 2. Best Gaze (Lateral Gaze Paresis) - 0(Normal) 3. Visual Field Loss - 0(No visual loss) 4. Facial Palsy - 0(Normal) 5a. Left Arm: Motor (10-second hold) - 0(No drift) 5b. Right Arm: Motor (10-second hold) - 0(No drift) 6a. Left Leg: Motor (5-second hold - always test supine) - 0(No drift) 6b. Right Leg: Motor (5-second hold - always test supine) - 0(No drift) 7. Limb Ataxia (finger/nose \T\ heel/han - test with eyes open) - 0(Absent) 8. Sensory Loss (pinprick arms/legs/face) - 1(Mild to moderate loss) 9. Best Language: Aphasia (description/naming/reading) - 1(Mild to moderate aphasia) Initials: kerrie NIH Stroke Scale - NIH Stroke Score Date: 02/22/2025 Time: 23:00 Total Score = 0 10. Dysarthria (speech clarity - read or repeat words) - 0(Normal) 11. Extinction and Inattention (visual/tactile/auditory/spatial/personal) - 0(No abnormality) 1a. Level of Consciousness (LOC) - 0(Alert) 1b. Level of Consciousness (LOC) (Month \T\ Age) - 0(Both) 1c. LOC Commands (Open \T\ Closes Eyes/Email Designer) - 0(Both) 2. Best Gaze (Lateral Gaze Paresis) - 0(Normal) 3. Visual Field Loss - 0(No visual loss) 4. Facial Palsy - 0(Normal) 5a. Left Arm: Motor (10-second hold) - 0(No drift) 5b. Right Arm: Motor (10-second hold) - 0(No drift) 6a. Left Leg: Motor (5-second hold - always test supine) - 0(No drift) 6b. Right Leg: Motor (5-second hold - always test supine) - 0(No drift) 7. Limb Ataxia (finger/nose \T\ heel/han - test with eyes open) - 0(Absent) 8. Sensory Loss (pinprick arms/legs/face) - 0(Normal) 9. Best Language: Aphasia (description/naming/reading) - 0(No aphasia) Initials: lg3 Signatures: Dispatcher [employer] Kang Mercer MD MD cha Able, Lacie RN RN lg3 Sara Carney RN RN vc1 Tatianna Floyd rv1 LEONEL CANALES RN RN dd2 Corrections: (The following items were deleted from the chart) 02/22 23:28 23:20 [facility] Protocol Exclusion Criteria: Unable to remain alert for lg3 testing: No NPO for medical/surgical reason by provider order No Head-of-bed restricted <30 degrees Tracheostomy tube present No No thin liquids due to preexisting dysphagia/baseline modified diet thickened liquids No Exclusion Criteria Result: Proceed Brief Cognitive Screen What is your name? Normal, Where are you right now? Normal, What year is it? Normal. Oral Mechanism Examination Facial Symmetry: Normal, Motion: Normal, Lip Closure: Normal, Oral Mechanism Result: Normal. 3 oz Water Swallow Challenge: Pt able to drink all water without stopping, coughing, choking or throat clearing: Yes Result: PASS Notified: Kang Oglesby MD dd2
[2025-02-22 23:05] LABS: Bilirubin Direct < 0.2 mg/dL (0-0.2); Bilirubin Indirect, Calculated 0.2 mg/dL (0.2-0.8); C-Reactive Protein < 2.90 mg/L (<3.00)
[2025-02-22] MEDS ORDERED: ONDANSETRON 4 MG/2 ML VIAL ONE (23:09)
[2025-02-22] MEDS ORDERED: ASPIRIN 81 MG CHEWABLE TABLET ONE (23:10)
[2025-02-22] MEDS ORDERED: CLOPIDOGREL 75 MG TABLET ONE (23:10)
[2025-02-22] MEDS ORDERED: FOLIC ACID 5 MG/ML VIAL ONE (23:11)
[2025-02-22] MEDS ORDERED: FAMOTIDINE 20 MG/2 ML VIAL IV ONE (23:11)
[2025-02-22] MEDS ORDERED: FENTANYL CITR 100 MCG/2 ML ONE (23:11)
[2025-02-22] MEDS ORDERED: NA CHLORIDE 0.9% 1,000 ML ONE (23:12)
[2025-02-23 01:58] VITALS: TEMP 97.8
[2025-02-23 02:07] VITALS: BP 145/85; O2SAT 100
== END 2025-02-23 01:52 | disposition left against medical advice (07) ==
LOC: ER 22:02
DX: I63.9 Cerebral infarction, unspecified (principal); R47.01 Aphasia; R29.703 NIHSS score 3
CPT/HCPCS: 93005; 85025; 80048; 36415; 83735; 85610; 82565; 82947; 80076; 84484; 83880; 86140; 70496; 70498; 70450; 71045; 82077; Q9967; J3010; J2405; J7030

== ENCOUNTER 2025-03-28 20:31 | Emergency (ER) | payer OTHER ==
--- NOTE | 2025-03-28 21:01 | EDPHYS ---
Physician Documentation [facility] Name: Carlee Campuzano Age: 59 yrs Sex: Female : 1965 Arrival Date: 03/28/2025 Time: 20:31 Bed 4 Private MD: ED Physician Benjamin Biswas HPI: 03/28 20:58 This 59 yrs old Female presents to ER via Unassigned with complaints of Leg Pain. kb 20:58 Patient is a 59-year-old female who presents for right leg pain that started today. kb States she was taking her dog out and felt a burning pulling sensation to her right thigh. States she is holding torn muscles in the past and it feels the same. Denies fall or injury.. Historical: - Allergies: 21:14 Demerol; br2 21:14 Keppra; br2 21:14 Morphine; br2 - PMHx: 21:14 Asthma; chronic back pain; Dementia; insomnia; Migraine; Seizure; Sleep Apnea; TIA br2 (insomnia); - PSHx: 21:14 Cholecystectomy; gastric sleeve; left shoulder; Ligation of fallopian tube; right br2 shoulder; Tonsillectomy; Total abdominal hysterectomy; - Immunization history:: Adult Immunizations up to date. - Infectious Disease History:: Denies. - Social history:: Smoking status: Patient/guardian denies using tobacco, Patient/guardian denies using alcohol, street drugs. ROS: 20:58 Constitutional: As per HPI kb Exam: 20:58 Constitutional: This is a well developed, well nourished patient who is awake, alert, kb and in no acute distress. Head/Face: Normocephalic, atraumatic. ENT: Moist Mucous membranes Cardiovascular: Regular rate Respiratory: Respirations even and unlabored. No increased work of breathing. Talking in full sentences Skin: Warm, dry with normal turgor. Normal color. Neuro: Awake and alert, GCS 15, oriented to person, place, time, and situation. 20:58 Musculoskeletal/extremity: Extremities: grossly normal except: noted in the right quadriceps: pain, tenderness, ROM: intact in all extremities, Circulation is intact in all extremities. Sensation intact. Weight bearing: able to fully bear weight, Vital Signs: 21:12 BP 121 / 66; Pulse 65; Resp 18; Temp 97.2; Pulse Ox 96% on R/A; Weight 62.6 kg; Height br2 5 ft. 4 in. ; Pain 8/10; 21:12 Body Mass Index 23.69 (62.60 kg, 162.56 cm) br2 21:12 Pain Scale: Adult br2 MDM: 20:36 Medical Screening Exam initiated kb 20:59 Differential diagnosis: tendonitis, Strain, sprain. Data reviewed: vital signs, nurses kb notes. Test considered but Not performed: X-ray: Femur x-ray considered but patient has no bony tenderness, denies injury or trauma. Patient in agreement that imaging would not be beneficial. Historians other than the Patient: Spouse/Significant Other: . Counseling: I had a detailed discussion with the patient and/or guardian regarding the historical points, exam findings, and any diagnostic results supporting the discharge/admit diagnosis, the need for outpatient follow up, a family practitioner, to return to the emergency department if symptoms worsen or persist or if there are any questions or concerns that arise at home. Administered Medications: 21:20 CANCELLED (Physician Discretion): [id number] mg PO once kd3 21:20 Drug: Ketorolac IM 30 mg IM once Route: IM; Site: right gluteus; kd3 21:20 Drug: traMADol PO 50 mg PO once Route: PO; kd3 Disposition: 03/29 20:07 Co-signature as Attending Physician, Benjamin Biswas MD I agree with the assessment sp4 and plan of care. I reviewed the patient's care provided by the Advanced Practice Provider and agree with the diagnosis and treatment plan. Disposition Summary: 03/28/25 21:00 Discharge Ordered Notes: Location: Home kb Condition: Stable kb Diagnosis - Pain in right leg kb Followup: kb - With: Emergency Department - When: As needed - Reason: Worsening of condition Followup: kb - With: Private Physician - When: 2 - 3 days - Reason: Recheck today's complaints, Continuance of care, Re-evaluation by your physician Discharge Instructions: - Discharge Summary Sheet kb - Musculoskeletal Pain kb - Muscle Strain, [id number] kb Forms: - Medication Reconciliation Form kb - Antibiotic Education kb - Prescription Opioid Use kb - Patient Portal Instructions kb - Leadership Thank You Letter kb Prescriptions: - Diclofenac Sodium 75 mg Oral tablet, delayed release (enteric coated) - take 1 tablet ORAL route 2 times per day As needed; 30 tablet; Refills: 0, kb Product Selection Permitted - orphenadrine citrate 100 mg Oral Tablet Sustained Release - take 1 tablet ORAL route 2 times per day As needed; 20 tablet; Refills: 0, kb Product Selection Permitted Signatures: Ansley Banks FNP-C FNP-Ckb Doucette, Kyli RN RN kd3 Benjamin Biswas MD MD sp4 Brittney Zavala RN RN br2 Corrections: (The following items were deleted from the chart) 03/28 21:20 20:47 traMADol PO 25 mg PO once ordered. fernando kd3
[2025-03-28] MEDS ORDERED: KETOROLAC 30 MG/ML INJ ONE (21:13)
[2025-03-28] MEDS ORDERED: TRAMADOL HCL 50 MG TAB ONE (21:14)
--- NOTE | 2025-03-28 21:26 | ER ---
Nurse's Notes [facility] Name: Carlee Campuzano Age: 59 yrs Sex: Female : 1965 Arrival Date: 03/28/2025 Time: 20:31 Bed 4 Private MD: Diagnosis: Pain in right leg Presentation: 03/28 21:12 Chief complaint: Patient states: WALKING DOG AND FELT A POP ON RIGHT UPPER THIGH. br2 Coronavirus screen: Client denies travel out of the [place] in the last 14 days. Ebola Screen: Patient denies exposure to infectious person. Initial Sepsis Screen: Does the patient meet any 2 criteria? No. Patient's initial sepsis screen is negative. Does the patient have a suspected source of infection? No. Patient's initial sepsis screen is negative. Risk Assessment: Do you want to hurt yourself or someone else? Patient reports no desire to harm self or others. Onset of symptoms was March 28, 2025 at 19:00. 21:12 Method Of Arrival: Wheelchair br2 21:12 Acuity: JO ANN 4 br2 Triage Assessment: 21:14 General: Appears uncomfortable, Behavior is calm, cooperative. Pain: Complains of pain br2 in right quadriceps. Musculoskeletal: Reports pain in right quadriceps. Historical: - Allergies: 21:14 Demerol; br2 21:14 Keppra; br2 21:14 Morphine; br2 - PMHx: 21:14 Asthma; chronic back pain; Dementia; insomnia; Migraine; Seizure; Sleep Apnea; TIA br2 (insomnia); - PSHx: 21:14 Cholecystectomy; gastric sleeve; left shoulder; Ligation of fallopian tube; right br2 shoulder; Tonsillectomy; Total abdominal hysterectomy; - Immunization history:: Adult Immunizations up to date. - Infectious Disease History:: Denies. - Social history:: Smoking status: Patient/guardian denies using tobacco, Patient/guardian denies using alcohol, street drugs. Screenin:24 [facility] ED Fall Risk Assessment (Adult) History of falling in the last 3 months, kd3 including since admission No falls in past 3 months (0 pts) Confusion or Disorientation No (0 pts) Intoxicated or Sedated No (0 pts) Impaired Gait No (0 pts) Mobility Assist Device Used No (0 pt) Altered Elimination No (0 pt) Score/Fall Risk Level 0 - 2 = Low Risk Oriented to surroundings. Abuse screen: Denies threats or abuse. Denies injuries from another. Nutritional screening: No deficits noted. Tuberculosis screening: No symptoms or risk factors identified. Vital Signs: 21:12 BP 121 / 66; Pulse 65; Resp 18; Temp 97.2; Pulse Ox 96% on R/A; Weight 62.6 kg; Height br2 5 ft. 4 in. ; Pain 8/10; 21:12 Body Mass Index 23.69 (62.60 kg, 162.56 cm) br2 21:12 Pain Scale: Adult br2 ED Course: 20:35 Patient arrived in ED. gm2 20:36 Ansley Banks FNP-C is [facility]. kb 20:36 Benjamin Biswas MD is Attending Physician. kb 21:10 Winter Lowe, RN is Primary Nurse. kd3 21:14 Triage completed. br2 21:14 Arm band placed on right wrist. br2 21:24 No provider procedures requiring assistance completed. Patient did not have IV access kd3 during this emergency room visit. 21:25 Patient has correct armband on for positive identification. Provided Education on: kd3 ice/heat application for pain control . Administered Medications: 21:20 CANCELLED (Physician Discretion): [id number] mg PO once kd3 21:20 Drug: Ketorolac IM 30 mg IM once Route: IM; Site: right gluteus; kd3 21:20 Drug: traMADol PO 50 mg PO once Route: PO; kd3 Medication: 21:25 VIS not applicable for this client. kd3 Outcome: 21:00 Discharge ordered by . kb 21:25 Discharged to home ambulatory, with family, kd3 21:25 Condition: stable 21:25 Discharge instructions given to patient, family, Instructed on discharge instructions, follow up and referral plans. medication usage, Demonstrated understanding of instructions, follow-up care, medications, Prescriptions given X 2, 21:25 Patient left the ED. kd3 Signatures: Ansley Banks FNP-C TIE PULLER-Winter Longoria, RN RN kd3 Sarah Luis gm2 Brittney Zavala RN RN br2
[2025-03-28 21:38] VITALS: BP 121/66; TEMP 97.2; O2SAT 96
== END 2025-03-28 21:25 | disposition home or self-care (01) ==
LOC: ER 20:31
DX: M79.604 Pain in right leg (principal)
CPT/HCPCS: 96372; 99284

== ENCOUNTER 2025-08-26 17:53 | Emergency (ER) | payer OTHER ==
--- NOTE | 2025-08-26 19:13 | RAD REPORT ---
EXAM: CT brain without contrast HISTORY: TRAUMA COMPARISON: None TECHNIQUE: Multiple contiguous axial images were obtained and a CT of the brain without contrast. Sag ittal and coronal reformats were performed. One or more of the following dose reduction techniques were used: Automated exposure control, adjust ment of the mA and/or kV according to patient size, and/or iterative reconstruction. FINDINGS: No evidence of hydrocephalus, intracranial hemorrhage, or extra-axial fluid collection. The brain is normal in morphology. No evidence of midline shift or areas of brain edema. The calvarium is intact. The visualized paranasal sinuses and mastoid air cells are essentially clear . EXAM: CT of the cervical spine without contrast HISTORY: Neck pain, injury TRAUMA TECHNIQUE: Multiple contiguous axial images were obtained in a CT of the cervical spine without contr ast. Sagittal and coronal reformats were performed. FINDINGS: The vertebral bodies demonstrate normal height and alignment. No evidence of acute fracture or subluxation.. Moderate lower cervical degenerative changes. No prevertebral soft tissue swelling is seen. Carotid atherosclerosis. The lung apices are unremarkable. COMBINED IMPRESSION: No evidence of acute intracranial abnormality. No evidence of acute osseous abnormality of the cervical spine.
--- NOTE | 2025-08-26 19:18 | RAD REPORT ---
EXAM: CT CHEST, ABDOMEN AND PELVIS WITHOUT CONTRAST CLINICAL INDICATION: TRAUMA TECHNIQUE: CT chest, abdomen and pelvis was performed without contrast, as per department protocol. A xial, sagittal and coronal reconstructions were obtained. One or more of the following dose reduction techniques were used: Automated exposure control, adjustment of the mA and/or kV according to patient size, and/or iterative reconstruction. Unless otherwise specified, incidental findings do not require dedicated imaging follow-up. Examination is limited by the lack of intravenous contrast material. COMPARISON: 07/07/2025 FINDINGS: LUNGS: Mild diffuse COPD. Areas of scarring appear unchanged. No acute lung finding. PLEURA: No pleural effusion. No pneumothorax. MEDIASTINUM AND LYMPH NODES: Small hiatal hernia. Calcified left hilar lymph nodes. OSSEOUS STRUCTURES AND CHEST WALL: Intact. LIVER: 5 cm low-density lesion in the superior right lobe liver, unchanged. No intrahepatic biliary d ilatation. Cholecystectomy clips. PANCREAS: No mass, ductal dilation, or sabrina-pancreatic fluid. SPLEEN: Normal size. No focal lesion. ADRENALS: Normal; no mass. KIDNEYS: Normal size and contour. No hydronephrosis. URINARY BLADDER: Normal contour. GASTROINTESTINAL TRACT: No bowel obstruction, free air, significant free fluid or abscess. There is moderate diverticulosis coli of the sigmoid colon without diverticulitis. APPENDIX: Normal appendix. LYMPH NODES: No lymphadenopathy. MUSCULOSKELETAL: Mild lumbar levoscoliosis. OTHER: Moderate/large fat-containing umbilical hernia. IMPRESSION: No acute abnormalities seen in the chest, abdomen or pelvis.
--- NOTE | 2025-08-26 19:57 | EDPHYS ---
Physician Documentation [facility] Name: Carlee Campuzano Age: 59 yrs Sex: Female : 1965 Arrival Date: 08/26/2025 Time: 17:53 Bed 17 Private MD: ED Physician Kang Oglesby HPI: 08/26 20:33 This 59 yrs old Female presents to ER via Wheelchair with complaints of Fall dr5 Injury. 20:33 Details of fall: The patient fell from a height, down approximately [address]5 is a 59-year-old female with history of asthma, chronic back pain, dementia, migraine, seizures coming in with fall after dog tripped her down 3 steps. Patient denies being on blood thinners. Patient reports that she does not member the event she just members waking up and getting in the car driving here. Patient reports left shoulder pain and back pain in general. No fever, loss of bowel or bladder, perirectal numbness, or numbness or tingling of legs.. Historical: - Allergies: 18:17 Demerol; me1 18:17 Keppra; me1 18:17 Morphine; me1 - PMHx: 18:17 Asthma; chronic back pain; Dementia; insomnia; Migraine; Seizure; Sleep Apnea; liver me1 nodule (Unknown); - PSHx: 18:17 Cholecystectomy; gastric sleeve; left shoulder; Ligation of fallopian tube; right me1 shoulder; Tonsillectomy; Total abdominal hysterectomy; - Immunization history:: Adult Immunizations up to date. - Infectious Disease History:: Denies. - Social history:: Smoking status: Patient denies any tobacco usage or history of. ROS: 20:33 Constitutional: as per hpi Eyes: Negative for injury, pain, redness, and discharge, dr5 Exam: 20:33 Constitutional: This is a well developed, well nourished patient who is awake, alert, dr5 and in no acute distress. Head/Face: Normocephalic, atraumatic. Eyes: Pupils equal round and reactive to light, extra-ocular motions intact. Lids and lashes normal. Conjunctiva and sclera are non-icteric and not injected. Cornea within normal limits. Periorbital areas with no swelling, redness, or edema. Neck: Trachea midline, no thyromegaly or masses palpated, and no cervical lymphadenopathy. Supple, full range of motion without nuchal rigidity, or vertebral point tenderness. No Meningismus. Chest/axilla: Normal chest wall appearance and motion. Nontender with no deformity. No lesions are appreciated. Cardiovascular: Regular rate and rhythm with a normal S1 and S2. Normal PMI, no JVD. No pulse deficits. Respiratory: Lungs have equal breath sounds bilaterally, clear to auscultation. No rales, rhonchi or wheezes noted. No increased work of breathing, no retractions or nasal flaring. Back: No spinal tenderness. No costovertebral tenderness. Full range of motion. Skin: Warm, dry with normal turgor. Normal color with no rashes, no lesions, and no evidence of cellulitis. MS/ Extremity: Pulses equal, no cyanosis. Neurovascular intact. Full, normal range of motion. Neuro: Awake and alert, GCS 15, oriented to person, place, time, and situation. Cranial nerves II-XII grossly intact. Motor strength 5/5 in all extremities. Sensory grossly intact. Cerebellar exam normal. Normal gait. Vital Signs: 18:15 BP 120 / 93; Pulse 78; Resp 18; Temp 98.2; Pulse Ox 99% ; Weight 62.14 kg; Height 5 ft. me1 4 in. ; Pain 10/10; 20:00 BP 122 / 87; Pulse 78; Resp 18; Pulse Ox 98% ; rg5 18:15 Body Mass Index 23.52 (62.14 kg, 162.56 cm) me1 18:15 Pain Scale: Adult me1 Procedures: 20:33 Splinting: Splint applied to left arm using sling, applied by nurse. Examined by me, dr5 post splint application: neurovascular intact, 2+ distal pulses palpable, brisk capillary refill noted, Patient tolerated well. MDM: 17:58 Medical Screening Exam initiated dr5 20:33 Differential diagnosis: abrasion, closed head injury, contusion, fracture, sprain, dr5 strain. Data reviewed: vital signs, nurses notes, radiologic studies, CT scan. Consideration of Admission/Observation Escalation of care including admission/observation considered. Escalation considered patient found to have intracranial hemorrhage. I considered the following discharge prescriptions or medication management in the emergency department I discussed and recommended Over The Counter medications, Medications were administered in the Emergency Department. See MAR. Independent interpretation of the following test(s) in the Emergency Department CT Scan: My interpretation is Independent interpretation of CT does not reveal intracranial hemorrhage. Care significantly affected by the following chronic conditions: Asthma, back pain, dementia, migraines, seizures. Care significantly affected by the following Social Determinants of Health: Poor access to healthcare and/or lack of insurance, Poor access to transportation, Problems related to employment. Counseling: I had a detailed discussion with the patient and/or guardian regarding the historical points, exam findings, and any diagnostic results supporting the discharge/admit diagnosis, the presence of at least one elevated blood pressure reading (>120/80) during this emergency department visit, radiology results, the need for outpatient follow up, for definitive care, a family practitioner, to return to the emergency department if symptoms worsen or persist or if there are any questions or concerns that arise at home. Medication response: Toradol, Valium. Response to treatment: the patient's symptoms have markedly improved after treatment. Special discussion: I discussed with the patient/guardian in detail that at this point there is no indication for admission to the hospital. It is understood, however, that if the symptoms persist or worsen the patient needs to return immediately for re-evaluation. Based on the history and exam findings, there is no indication for further emergent testing or inpatient evaluation. I discussed with the patient/guardian the need to see the primary care provider for further evaluation of the symptoms. ED course: Patient reports that she does best with tramadol as well as muscle relaxers. Will give her a short course to help with pain from fall. No intracranial hemorrhage or abnormality noted on CT head. Also no abnormality noted on CT chest abdomen pelvis. Will have patient follow primary care doctor. All questions answered. Strict ER precautions given.. 08/26 18:26 Order name: CT Head C Spine; Complete Time: 19:18 dr5 08/26 18:26 Order name: CT Chest Abdomen Pelvis W/O Contrast; Complete Time: 19:20 dr5 08/26 19:49 Order name: Sling; Complete Time: 20:44 dr5 Administered Medications: 19:49 Not Given (Physician Discretion): ns 0.9% 1000 ml IV at 1000 ml once; to be given as a dr5 bolus over 60 minutes 19:49 Not Given (Other Intervention Used): ondansetron 4 mg IVP once; over 2 minutes dr5 19:49 Not Given (Physician Discretion): diazepam5 mg IVP once dr5 20:13 Drug: Ketorolac IM 30 mg IM once Route: IM; Site: right gluteus; rg5 20:44 Follow up: Response: No adverse reaction; Pain is decreased rg5 20:13 Drug: Diazepam IM 5 mg IM once Route: IM; Site: right deltoid; rg5 20:44 Follow up: Response: No adverse reaction rg5 Disposition Summary: 08/26/25 19:57 Discharge Ordered Notes: Location: Home dr5 Condition: Stable dr5 Diagnosis - Pain in left shoulder dr5 - Fall on same level, unspecified dr5 Followup: dr5 - With: Emergency Department - When: As needed - Reason: Worsening of condition Followup: dr5 - With: Private Physician - When: 1 - 2 days - Reason: Recheck today's complaints, Continuance of care, Re-evaluation by your physician Discharge Instructions: - Discharge Summary Sheet dr5 - Fall Prevention in the Home, Adult dr5 - Shoulder Pain dr5 Forms: - Medication Reconciliation Form dr5 - Prescription Opioid Use dr5 - Patient Portal Instructions dr5 - Leadership Thank You Letter dr5 Prescriptions: - Cyclobenzaprine 10 mg Oral Tablet - take 1 tablet ORAL route every 8 hours As needed; 30 tablet; Refills: 0, dr5 Product Selection Permitted - Tramadol 50 mg Oral Tablet - take 1 tablet ORAL route every 8 hours as needed; 12 tablet; Refills: 0, dr5 Product Selection Permitted Signatures: Dispatcher [employer] Elissa Jaramillo, RN RN me1 Marquise Herndon RN RN rg5 Jaycob Hughes, CORPORATE TUTOR-C CORPORATE TUTOR-Cdr5 Corrections: (The following items were deleted from the chart) 18:18 18:17 PMHx: TIA (insomnia); me1 me1 20:45 18:26 IV Saline Lock ordered. dr5 rg5
--- NOTE | 2025-08-26 19:57 | ER ---
Nurse's Notes [facility] Name: Carlee Campuzano Age: 59 yrs Sex: Female : 1965 Arrival Date: 08/26/2025 Time: 17:53 Bed 17 Private MD: Diagnosis: Pain in left shoulder;Fall on same level, unspecified Presentation: 08/26 18:15 Chief complaint: Patient states: patient's dog drug her down her 3 RV steps, Hit her me1 head, unsure about LOC. No blood thinners. c/o MOMIN, dizziness, nausea, lower back pain, left shoulder pain and numbness to left hand/fingers. Pain level 10/10. Coronavirus screen: At this time, the client does not indicate any symptoms associated with coronavirus-19. Ebola Screen: No symptoms or risks identified at this time. Initial Sepsis Screen: Does the patient meet any 2 criteria? No. Patient's initial sepsis screen is negative. Does the patient have a suspected source of infection? No. Patient's initial sepsis screen is negative. Risk Assessment: Do you want to hurt yourself or someone else? Patient reports no desire to harm self or others. Onset of symptoms was August 26, 2025 at 17:00. 18:15 Method Of Arrival: Wheelchair me1 18:15 Acuity: JO ANN 4 me1 Historical: - Allergies: 18:17 Demerol; me1 18:17 Keppra; me1 18:17 Morphine; me1 - PMHx: 18:17 Asthma; chronic back pain; Dementia; insomnia; Migraine; Seizure; Sleep Apnea; liver me1 nodule (Unknown); - PSHx: 18:17 Cholecystectomy; gastric sleeve; left shoulder; Ligation of fallopian tube; right me1 shoulder; Tonsillectomy; Total abdominal hysterectomy; - Immunization history:: Adult Immunizations up to date. - Infectious Disease History:: Denies. - Social history:: Smoking status: Patient denies any tobacco usage or history of. Assessment: 19:00 General: Appears in no apparent distress. uncomfortable, Behavior is calm, cooperative, rg5 appropriate for age. Pain: Complains of pain in posterior aspect of left shoulder Quality of pain is described as aching. Neuro: Level of Consciousness is awake, alert, obeys commands, Oriented to person, place, time, situation. Cardiovascular: Denies chest pain, Patient's skin is warm and dry. Respiratory: Airway is patent Respiratory effort is even, unlabored. GI: No signs and/or symptoms were reported involving the gastrointestinal system. : No signs and/or symptoms were reported regarding the genitourinary system. EENT: No signs and/or symptoms were reported regarding the EENT system. Derm: Skin is intact, Skin is dry. Musculoskeletal: Circulation, motion, and sensation intact. Range of motion: limited in left shoulder. Vital Signs: 18:15 BP 120 / 93; Pulse 78; Resp 18; Temp 98.2; Pulse Ox 99% ; Weight 62.14 kg; Height 5 ft. me1 4 in. ; Pain 10/10; 20:00 BP 122 / 87; Pulse 78; Resp 18; Pulse Ox 98% ; rg5 18:15 Body Mass Index 23.52 (62.14 kg, 162.56 cm) me1 18:15 Pain Scale: Adult me1 ED Course: 17:56 Patient arrived in ED. cj3 17:57 Jaycob Hughes FNP-[facility]5 17:57 Kang Oglesby MD is Attending Physician. dr5 18:16 Triage completed. me1 18:17 Arm band placed on Patient placed in waiting room. me1 19:00 CT Head C Spine In Process Unspecified. EDMS 19:00 CT Chest Abdomen Pelvis W/O Contrast In Process Unspecified. EDMS 19:00 Patient did not have IV access during this emergency room visit. rg5 19:20 Marquise Herndon, RN is Primary Nurse. rg5 Administered Medications: 19:49 Not Given (Physician Discretion): ns 0.9% 1000 ml IV at 1000 ml once; to be given as a dr5 bolus over 60 minutes 19:49 Not Given (Other Intervention Used): ondansetron 4 mg IVP once; over 2 minutes dr5 19:49 Not Given (Physician Discretion): diazepam5 mg IVP once dr5 20:13 Drug: Ketorolac IM 30 mg IM once Route: IM; Site: right gluteus; rg5 20:44 Follow up: Response: No adverse reaction; Pain is decreased rg5 20:13 Drug: Diazepam IM 5 mg IM once Route: IM; Site: right deltoid; rg5 20:44 Follow up: Response: No adverse reaction rg5 Outcome: 19:57 Discharge ordered by . aracelis 20:58 Discharged to home via wheelchair, rg5 20:58 Condition: stable rg5 20:58 Discharge instructions given to patient, Instructed on discharge instructions, Demonstrated understanding of instructions, Prescriptions given X 2, 20:58 Patient left the ED. rg5 Signatures: Dispatcher [employer] EDMS Elissa Holbrook RN RN me1 Marquise Herndon RN RN rg5 Jaycob Hughes, COTTON OPENER-C COTTON OPENER-Cdr5 Davina Pizano 3 Corrections: (The following items were deleted from the chart) 18:17 18:15 Acuity: JO ANN 3 me1 me1 18:18 18:17 PMHx: TIA (insomnia); me1 me1
[2025-08-26] MEDS ORDERED: DIAZEPAM 10 MG/2 ML INJ SYRINGE ONE (20:06)
[2025-08-26] MEDS ORDERED: KETOROLAC 30 MG/ML INJ ONE (20:08)
[2025-08-27 02:28] VITALS: TEMP 98.2
[2025-08-27 02:29] VITALS: BP 122/87; O2SAT 98
== END 2025-08-26 20:58 | disposition home or self-care (01) ==
LOC: ER 17:53
DX: M25.512 Pain in left shoulder (principal); W10.8XXA Fall (on) (from) other stairs and steps, initial encounter
CPT/HCPCS: 70450; 71250; 72125; 74176; 96372; 99284; J1885; J3360